=== PATIENT | male | born 1950 | race Caucasian/White ===

== ENCOUNTER 2017-09-26 12:57 | Inpatient (IN) | payer MEDICARE, OTHER ==
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
[2017-09-26] MEDS ORDERED: ACETAMINOPHEN INJECTION 100 ML IVPB ONE (13:35)
[2017-09-26 13:59] LABS: BASO % 0.1 % (0-2.0); EOS % 0.3 % (0-4.5); HEMATOCRIT 39.6 % (35.4-49); HEMOGLOBIN 13.8 GM/dL (11.7-16.9); LYMPH % 5.4 % (8-40); MCH 34.8 pg (25.7-33.7); MCHC 34.8 g/dl (32.0-35.9); MEAN CELL VOLUME 99.9 fl (80-96); MEAN PLT VOLUME 8.3 fl (7.5-11.1); MONO % 0.7 % (3.8-10.2); NEUT % 93.5 % (42.8-82.8); PLATELET COUNT 167 K/MM3 (134-434); RBC 3.96 M/mm3 (4.00-5.60); RDW 13.1 % (11.9-15.9)
[2017-09-26 14:01] LABS: VENOUS PH 7.47 (7.32-7.42)
[2017-09-26 14:02] LABS: VENOUS PC02 34.7 mmHg (38-52); VENOUS PO2 28.2 mmHg (28-48)
[2017-09-26] MEDS: ACETAMINOPHEN 1000 MG/100 ML VIAL (NON FORMULARY) IVPB ONE ×2 (14:08→15:52)
--- NOTE | 2017-09-26 14:17 | PDOC ---
Attending Attestation - Resident Resident Name: Alanis East - ED Attending Attestation I have performed the following: I have examined & evaluated the patient, The case was reviewed & discussed with the resident, I agree w/resident's findings & plan, Exceptions are as noted - HPI HPI: 09/26/17 14:14 The patient is a 66 year old male with past medical history of alcohol abuse ( last binge was 3 days ago) who presents to the ED with 2 days of difficulty urinating and fevers. He states that he strains to urinate and only a few drops come out. He reports associated fevers, chills, hematuria, and dysuria. He denies any nausea, vomiting, diarrhea, cough, SOB, CP, or other urinary complaints. Denies cough, denies headache, denies neck pain, denies back pain. - Physicial Exam PE: 09/26/17 14:15 "GENERAL: Awake, alert, and fully oriented, in no acute distress. HEAD: No signs of trauma EYES: PERRLA, EOMI, sclera anicteric, conjunctiva clear ENT: Auricles normal inspection, hearing grossly normal, nares patent, oropharynx clear without exudates. Moist mucosa NECK: Nontender, no stepoffs, Normal ROM, supple, no lymphadenopathy, JVD, or masses LUNGS: Breath sounds equal, clear to auscultation bilaterally. No wheezes, and no crackles HEART: Regular rate and rhythm, normal S1 and S2, no murmurs, rubs or gallops ABDOMEN: + suprapubic TTP, normoactive bowel sounds. No guarding, no rebound. No masses EXTREMITIES: Normal range of motion, no edema. No clubbing or cyanosis. No cords, erythema, or tenderness NEUROLOGICAL: Cranial nerves II through XII intact. 5/5 strength and sensation in all extremities, Normal speech, normal gait, normal cerebellar function SKIN: Warm, Dry, normal turgor, no rashes or lesions noted. " - Critical Care Time Total Critical Care Time: 60 Critical Care Statement: The care of this patient involved high complexity decision making to prevent further life threatening deterioration of the patient 's condition and/or to evaluate & treat vital organ system(s) failure or risk of failure. - Medical Decision Making 09/26/17 14:15 66 M with fevers, difficulty urinating, and dysuria. Likely UTI 2/2 obstruction. Pt with fever 102 and tachycardia, concerning for possible urosepsis. Vitals also notable for hypoxia 93%. Will need to r/o PNA. - Labs, cultures - CXR, UA - IVF, tylenol, abx Damico replaced with return of cloudy urine. Pt covered with IV abx for sepsis Admit to hospitalist.
[2017-09-26 14:22] LABS: INR 1.03 (0.82-1.09); PROTHROMBIN TIME (PATIENT) 11.6 SEC (9.98-11.88)
[2017-09-26 14:25] LABS: ACTIVATED PTT 27.2 SECONDS (26.9-34.4); ALBUMIN 2.9 g/dl (3.4-5.0); ANION GAP 11 (8-16); BILIRUBIN,TOTAL 2.1 mg/dL (0.2-1.0); BLOOD UREA NITROGEN 9 mg/dL (7-18); CALCIUM 7.8 mg/dL (8.5-10.1); CHLORIDE 96 mmol/L (98-107); CO2 24 mmol/L (21-32); CREATININE 1.1 mg/dL (0.7-1.3); GLUCOSE,RANDOM 182 mg/dL (74-106); POTASSIUM 3.4 mmol/L (3.5-5.1); SGOT/AST 48 U/L (15-37); SGPT/ALT 61 U/L (12-78); SODIUM 131 mmol/L (136-145); TOT PROT 6.7 g/dl (6.4-8.2)
[2017-09-26 14:26] LABS: ALK PHOS 144 U/L (45-117)
[2017-09-26] MEDS ORDERED: LIDOCAINE HCL 2% JELLY (5 ML/TUBE) TP ONE (14:32)
[2017-09-26] MEDS ORDERED: SODIUM CHLORIDE 1,000 ML IV STA ×2 (14:35→19:58)
[2017-09-26] MEDS ORDERED: LIDOCAINE HCL 2% JELLY (5 ML/TUBE) ONE (14:45)
[2017-09-26 14:46] LABS: URINE APPEARANCE CLOUDY; URINE BILIRUBIN NEGATIVE (<2.0 mg/dL); URINE BLOOD 2+ (NEGATIVE); URINE GLUCOSE (UA) NEGATIVE (NEGATIVE); URINE KETONE TRACE (NEGATIVE); URINE NITRITE NEGATIVE (NEGATIVE)
[2017-09-26 14:56] LABS: URINE COLOR DK YELLOW; URINE LEUK ESTERASE 3+ (NEGATIVE); URINE PROTEIN 2+ (NEGATIVE)
[2017-09-26 14:58] LABS: EPI CELLS RARE /HPF (FEW); URINE BACTERIA RARE /hpf (NONE SEEN); URINE MUCUS RARE
[2017-09-26] MEDS ORDERED: SODIUM CHLORIDE 0.9% 1000 ML INFUS.BAG IV STA (15:52)
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
[2017-09-26] MEDS ORDERED: VANCOMYCIN 1 GRAM (PRE-DOCKED) 1,000 MG/250 ML BAG IVPB ONE (16:23)
[2017-09-26] MEDS ORDERED: VANCOMYCIN 1,000 MG in DEXTROSE 5%-WATER - 250 ML IVPB ONE (16:30)
--- NOTE | 2017-09-26 16:41 | EKG ---
Test Reason : Blood Pressure : / mmHG Vent. Rate : 137 BPM Atrial Rate : 137 BPM P-R Int : 000 ms QRS Dur : 090 ms QT Int : 360 ms P-R-T Axes : 004 -22 041 degrees QTc Int : 543 ms SINUS TACHYCARDIA NONSPECIFIC T WAVE ABNORMALITY ABNORMAL ECG NO PREVIOUS ECGS AVAILABLE Confirmed by MD Jayashree, Alexys ([id number]) on 09/26/2017 4:41:01 PM Referred By: Confirmed By:Alexys Blanc MD
[2017-09-26] MEDS ORDERED: VANCOMYCIN 1,000 MG in DEXTROSE 5%-WATER - 250 ML IVPB SCH (17:00)
[2017-09-26 18:06] VITALS: BMI 22.6
[2017-09-26] MEDS ORDERED: DEXTROSE 5%-WATER - 50 ML IVPB ONE (20:56)
[2017-09-26] MEDS ORDERED: PIPERACILLIN/TAZOBACTAM 3.375 GM VIAL IVPB ONE (20:56)
[2017-09-26] MEDS: ACETAMINOPHEN 325 MG TABLET (FP) PO PRN (21:37)
[2017-09-26] MEDS: PIPERACILLIN/TAZOB 3.375 GM 3.375 GM in DEXTROSE 5%-WATER - 50 ML IVPB SCH (21:38)
[2017-09-26] MEDS: SODIUM CHLORIDE 1,000 ML IV SCH (22:29)
[2017-09-26] MEDS: HEPARIN NA (PORCINE) 5,000 UNITS/ML 1ML VIAL SQ SCH (22:29)
[2017-09-27] MEDS ORDERED: DEXTROSE 5%-WATER - 50 ML IVPB ONE ×2 (00:04→08:19)
[2017-09-27] MEDS ORDERED: PIPERACILLIN/TAZOBACTAM 3.375 GM VIAL IVPB ONE ×2 (00:04→08:19)
[2017-09-27] MEDS: PIPERACILLIN/TAZOB 3.375 GM 3.375 GM in DEXTROSE 5%-WATER - 50 ML IVPB SCH (01:28)
[2017-09-27] MEDS: POTASSIUM CHLORIDE TABS 20 MEQ TABLET.ER (FP) PO SCH ×2 (01:38→06:10)
[2017-09-27] MEDS: ACETAMINOPHEN 325 MG TABLET (FP) PO PRN (03:10)
[2017-09-27] MEDS ORDERED: VANCOMYCIN 1,000 MG in DEXTROSE 5%-WATER - 250 ML IVPB SCH (05:00)
[2017-09-27] MEDS: HEPARIN NA (PORCINE) 5,000 UNITS/ML 1ML VIAL SQ SCH ×3 (05:27→21:22)
[2017-09-27] MEDS ORDERED: IBUPROFEN 400 MG TABLET (FP) PO ONE (05:36)
[2017-09-27 07:14] LABS: BASO % 0.4 % (0-2.0); HEMATOCRIT 37.3 % (35.4-49); HEMOGLOBIN 12.7 GM/dL (11.7-16.9); LYMPH % 5.2 % (8-40); MCH 34.7 pg (25.7-33.7); MCHC 34.2 g/dl (32.0-35.9); MEAN CELL VOLUME 101.5 fl (80-96); MEAN PLT VOLUME 9.3 fl (7.5-11.1); MONO % 2.9 % (3.8-10.2); NEUT % 91.5 % (42.8-82.8); PLATELET COUNT 160 K/MM3 (134-434); RBC 3.67 M/mm3 (4.00-5.60); RDW 13.1 % (11.9-15.9)
[2017-09-27 07:50] LABS: ALBUMIN 2.2 g/dl (3.4-5.0); ANION GAP 8 (8-16); BILIRUBIN,DIRECT 0.6 mg/dL (0.0-0.2); BILIRUBIN,TOTAL 0.7 mg/dL (0.2-1.0); BLOOD UREA NITROGEN 6 mg/dL (7-18); CHLORIDE 108 mmol/L (98-107); CO2 24 mmol/L (21-32); CREATININE 0.9 mg/dL (0.7-1.3); GLUCOSE,RANDOM 136 mg/dL (74-106); MAGNESIUM 2.1 mg/dL (1.8-2.4); POTASSIUM 3.6 mmol/L (3.5-5.1); SODIUM 140 mmol/L (136-145); TOT PROT 5.3 g/dl (6.4-8.2)
--- NOTE | 2017-09-27 08:15 | PN ---
Progress Note (short form) - Note Progress Note: ID This is a 66 year old [place] immigrant living in [place] with his family since 1994 admitted with dysuria hematuria fevers and chills for 3 days. Denies prior medical history and says he has no doctor as he has not had any problems in past. He drinls a gret deal of alcohol but denies drug use. He has no recent travel and is not diabetic. Febrile here Damico inserted as he could not urinate. Renal sonogram no obstruction NKA No medications nonsmoker Selected Entries 09/27/17 09/27/17 03:12 08:05 Temperature 101.7 F H 99.8 F H Pulse Rate 99 H Respiratory 16 Rate Blood Pressure 96/52 Lung Clear Cor S1 S2 RR Abd soft nontender Ext No edema Microbiology Laboratory Tests 09/26/17 09/26/17 09/26/17 13:50 13:50 13:50 WBC 5.0 Hgb 13.8 MCV 99.9 H Plt Count 167 INR 1.03 BUN 9 Creatinine 1.1 Random Glucose 182 H Lactic Acid AST 48 H ALT 61 Alkaline Phosphatase 144 H C-Reactive Protein Ur Leukocyte Esterase Urine RBC (Auto) 09/26/17 09/26/17 09/26/17 13:56 14:35 17:38 WBC Hgb MCV Plt Count INR BUN Creatinine Random Glucose Lactic Acid 2.3 H* 1.1 AST ALT Alkaline Phosphatase C-Reactive Protein Ur Leukocyte Esterase 3+ H Urine RBC (Auto) 20 09/26/17 17:38 WBC Hgb MCV Plt Count INR BUN Creatinine Random Glucose Lactic Acid AST ALT Alkaline Phosphatase C-Reactive Protein 11.5 H Ur Leukocyte Esterase Urine RBC (Auto) Assessment Acute prostatitis Chronic alcoholism Sepsis Plan Cultures Zosyn Liver sonogram Hepatitis serology HIV testing B12 Folate Observe for withdrawal as per Peg Yusuf Meier MD Problem List - Problems (1) Acute prostatitis Code(s): N41.0 - ACUTE PROSTATITIS (2) Alcoholism Code(s): F10.20 - ALCOHOL DEPENDENCE, UNCOMPLICATED
[2017-09-27 08:26] LABS: CALCIUM 6.7 mg/dL (8.5-10.1)
[2017-09-27] MEDS ORDERED: PIPERACILLIN/TAZOBACTAM 4.5 GM VIAL IVPB ONE ×2 (09:10→17:05)
[2017-09-27] MEDS ORDERED: DEXTROSE 5%-WATER 100 ML IVPB ONE ×2 (09:10→17:06)
[2017-09-27] MEDS: TAMSULOSIN HCL 0.4 MG CAP.ER.24H (FP) PO SCH (10:42)
[2017-09-27] MEDS: PIPERACILLIN/TAZOB 4.5 GM 4.5 GM in DEXTROSE 5%-WATER 100 ML IVPB SCH ×2 (10:42→17:12)
[2017-09-27] MEDS: SODIUM CHLORIDE 1,000 ML IV SCH ×2 (10:43→12:30)
[2017-09-27] MEDS ORDERED: NAPH,MB-DB/K PH,MBDB POWDER PACKET PO ONE (11:15)
[2017-09-27] MEDS: CALCIUM 500MG/VIT-D 200 UNITS COMBO TABLET (FP) PO SCH (11:55)
--- NOTE | 2017-09-27 12:16 | PN ---
Physical Exam: SUBJECTIVE: Patient seen and examined. He feels better than yesterday, t max 102.4. Daughters at bedside. OBJECTIVE: Vital Signs Period Temp Pulse Resp BP Sys/Gallardo Pulse Ox Last 24 Hr 98.9 F-102.6 F 97-138 16-18 96-178/52-68 93-100 PE Neuro: alert, awake, cn 2-12intact Pulm: CTAB CV: s1 s2 rrr no mrg Abd: s nt nd + bs : mabry cloudy yellow urine - clearing ExT: no le edema, warm CBCD WBC 9.0 K/mm3 (4.0-10.0) D 09/27/17 06:16 RBC 3.67 M/mm3 (4.00-5.60) L 09/27/17 06:16 Hgb 12.7 GM/dL (11.7-16.9) 09/27/17 06:16 Hct 37.3 % (35.4-49) 09/27/17 06:16 MCV 101.5 fl (80-96) H 09/27/17 06:16 MCHC 34.2 g/dl (32.0-35.9) 09/27/17 06:16 RDW 13.1 % (11.9-15.9) 09/27/17 06:16 Plt Count 160 K/MM3 (134-434) 09/27/17 06:16 MPV 9.3 fl (7.5-11.1) D 09/27/17 06:16 CMP Sodium 140 mmol/L (136-145) 09/27/17 06:16 Potassium 3.6 mmol/L (3.5-5.1) 09/27/17 06:16 Chloride 108 mmol/L (98-107) H D 09/27/17 06:16 Carbon Dioxide 24 mmol/L (21-32) 09/27/17 06:16 Anion Gap 8 (8-16) 09/27/17 06:16 BUN 6 mg/dL (7-18) L D 09/27/17 06:16 Creatinine 0.9 mg/dL (0.7-1.3) 09/27/17 06:16 Creat Clearance w eGFR > 60 (>60) 09/26/17 13:50 Random Glucose 136 mg/dL (74-106) H D 09/27/17 06:16 Calcium 6.7 mg/dL (8.5-10.1) L* 09/27/17 06:16 Total Bilirubin 0.7 mg/dL (0.2-1.0) D 09/27/17 06:16 AST 92 U/L (15-37) H D 09/27/17 06:16 ALT 69 U/L (12-78) 09/27/17 06:16 Alkaline Phosphatase 117 U/L (45-117) 09/27/17 06:16 Total Protein 5.3 g/dl (6.4-8.2) L D 09/27/17 06:16 Albumin 2.2 g/dl (3.4-5.0) L D 09/27/17 06:16 09/26/17 09/26/17 09/26/17 13:50 13:56 17:38 INR 1.03 Lactic Acid 2.3 H* 1.1 Total Bilirubin Direct Bilirubin C-Reactive Protein Prostate Specific Ag Vitamin B12 Serum Folate Hep C Ab Diagnostic HIV 1&2 Antibody Screen HIV P24 Antigen 09/26/17 09/27/17 09/27/17 17:38 06:16 11:20 INR Lactic Acid Total Bilirubin 0.7 D Direct Bilirubin 0.6 H C-Reactive Protein 11.5 H Prostate Specific Ag Vitamin B12 Pending Serum Folate Pending Hep C Ab Diagnostic HIV 1&2 Antibody Screen Pending HIV P24 Antigen Pending 09/27/17 09/27/17 11:20 11:20 INR Lactic Acid Total Bilirubin Direct Bilirubin C-Reactive Protein Prostate Specific Ag Pending Vitamin B12 Serum Folate Hep C Ab Diagnostic Pending HIV 1&2 Antibody Screen HIV P24 Antigen Active Medications Generic Name Dose Route Start Last Admin Trade Name Freq PRN Reason Stop Dose Admin Acetaminophen 650 mg 09/26/17 21:33 09/27/17 03:10 Tylenol - PO 650 mg Q6H PRN Administration FEVER Calcium Carbonate/Cholecalciferol 1 tab 09/27/17 11:00 09/27/17 11:55 Os-Spenser 500+D - PO 1 tab DAILY LISA Administration Heparin Sodium (Porcine) 5,000 unit 09/26/17 22:00 09/27/17 05:27 Heparin - SQ 5,000 unit TID LISA Administration Piperacillin Sod/Tazobactam 100 mls @ 200 mls/hr 09/27/17 10:00 09/27/17 10: 42 Sod 4.5 gm/ Dextrose IVPB 200 mls/hr Q8H-IV LISA Administration Protocol Sodium Chloride 1,000 mls @ 83 mls/hr 09/27/17 12:05 Normal Saline - IV ASDIR LISA Tamsulosin HCl 0.4 mg 09/27/17 08:30 09/27/17 10:42 Flomax - PO 0.4 mg DAILY@0830 LISA Administration Microbiology 09/26/17 13:56 Blood - Peripheral Venous Blood Culture - Preliminary Pending Organism 09/26/17 13:56 Blood - Peripheral Venous Blood Culture - Preliminary Pending Organism Assessment: 66 year old male with no reported significant PMH other than daily alcohol use, up to 4 beers, admitted with urinary retention and severe sepsis. Plan: 1. Severe sepsis secondary to UTI, bacteremia - Remains febrile - BC pending - Lactic acid wnl - Continue zosyn - Decrease fluids - ID seeing 2. Urinary retention/hematuria/enlarged prostate - Maintain mabry - PSA level pending - Flomax - Urology consulted 3. Hepatic lesion/ETOH abuse - CTAP noted - Will obtain Abd MRI w, w/o contrast evaluate lesion - Hep panel pending - No acute withdrawal signs, pt last drink Monday 4. Electrolyte disarray Hypocalcemia, corrected 8.1: start po spenser supplements, no EKG changes noted on tele Hypophosphatemia: 2 pkts k phos now Hyponatreima: resolved Hypokalemia: resolved 5. DVT ppx - Heparin sq Visit type - Emergency Visit Emergency Visit: Yes ED Registration Date: 09/26/17 Care time: The patient presented to the Emergency Department on the above date and was hospitalized for further evaluation of their emergent condition. - New Patient This patient is new to me today: Yes Date on this admission: 09/27/17 - Critical Care Critical Care patient: No
[2017-09-27] MEDS: MULTIVITAMINS (DAILY MVI) TABLET (FP) PO SCH (12:30)
[2017-09-27] MEDS: FOLIC ACID 1 MG TABLET (FP) PO SCH (12:30)
[2017-09-27] MEDS: THIAMINE HCL 100 MG TABLET (FP) PO SCH (12:30)
--- NOTE | 2017-09-27 13:45 | CON.GI ---
Consult Consult Specialty:: GI Reason for Consultation:: abnormal CAT scan and ultrasound findings - History of Present Illness History of Present Illness: chart reviewed. The events noted. The initial intake: 66 year-old male with no reported significant PMH other than daily alcohol use. Patient presented to the ED today with a complaint of difficulty urinating x 2 days. Patient drank heavily three days ago at a constitution party. Since then he has had urgency, hematuria, and decreased urine output. He reports subjective fever and chills. He denies history of enlarged prostate or prostatitis. Soft tissue nodule was found on non-contrast CT and ultrasound. blood work revealed low normal platelet count, microcytosis, normal PT/INR, mildly elevated AST and normal total bili. the patient reports no prior history of liver issues. No family history of autoimmune, genetic, viral hepatitis. Normal physical exam. Patient's daughter at bedside helped interpreting. - Alcohol/Substance Use Hx Alcohol Use: Yes (OCCASIONALLY) - Smoking History Smoking history: Never smoked Home Medications - Allergies Allergies/Adverse Reactions: Allergies Allergy/AdvReac Type Severity Reaction Status Date / Time No Known Allergies Allergy Verified 09/26/17 13:02 - Home Medications Home Medications: Ambulatory Orders NK [No Known Home Medication] 09/26/17 Physical Exam-GI Vital Signs: Vital Signs Temperature 99.8 F H 09/27/17 08:05 Pulse Rate 99 H 09/27/17 08:05 Respiratory Rate 16 09/27/17 08:05 Blood Pressure 96/52 09/27/17 08:05 O2 Sat by Pulse Oximetry (%) 99 09/27/17 08:00 Constitutional: Yes: Well Nourished, No Distress, Calm Eyes: Yes: Conjunctiva Clear. No: Sclera Icterus HENT: Yes: Atraumatic Neck: Yes: Supple Cardiovascular: Yes: Regular Rate and Rhythm Respiratory: Yes: Regular Gastrointestinal Inspection: No: Ascites, Distention ...Auscultate: Yes: Normoactive Bowel Sounds ...Palpate: Yes: Soft. No: Firm/Rigid, Guarding, Tenderness Neurological: Yes: Alert Labs: CBC, BMP 09/27/17 06:16 09/27/17 06:16 INR, PTT INR 1.03 (0.82-1.09) 09/26/17 13:50 Laboratory Last Values WBC 9.0 K/mm3 (4.0-10.0) D 09/27/17 06:16 RBC 3.67 M/mm3 (4.00-5.60) L 09/27/17 06:16 Hgb 12.7 GM/dL (11.7-16.9) 09/27/17 06:16 Hct 37.3 % (35.4-49) 09/27/17 06:16 MCV 101.5 fl (80-96) H 09/27/17 06:16 MCH 34.7 pg (25.7-33.7) H 09/27/17 06:16 MCHC 34.2 g/dl (32.0-35.9) 09/27/17 06:16 RDW 13.1 % (11.9-15.9) 09/27/17 06:16 Plt Count 160 K/MM3 (134-434) 09/27/17 06:16 MPV 9.3 fl (7.5-11.1) D 09/27/17 06:16 Neutrophils % 91.5 % (42.8-82.8) H 09/27/17 06:16 Lymphocytes % 5.2 % (8-40) L 09/27/17 06:16 Monocytes % 2.9 % (3.8-10.2) L D 09/27/17 06:16 Eosinophils % 0.0 % (0-4.5) D 09/27/17 06:16 Basophils % 0.4 % (0-2.0) D 09/27/17 06:16 PT with INR 11.60 SEC (9.98-11.88) 09/26/17 13:50 INR 1.03 (0.82-1.09) 09/26/17 13:50 PTT (Actin FS) 27.2 SECONDS (26.9-34.4) 09/26/17 13:50 VBG pH 7.47 (7.32-7.42) H 09/26/17 13:42 POC VBG pCO2 34.7 mmHg (38-52) L 09/26/17 13:42 POC VBG pO2 28.2 mmHg (28-48) 09/26/17 13:42 Mixed VBG HCO3 25.2 meq/L (19-25) H 09/26/17 13:42 Sodium 140 mmol/L (136-145) 09/27/17 06:16 Potassium 3.6 mmol/L (3.5-5.1) 09/27/17 06:16 Chloride 108 mmol/L (98-107) H D 09/27/17 06:16 Carbon Dioxide 24 mmol/L (21-32) 09/27/17 06:16 Anion Gap 8 (8-16) 09/27/17 06:16 BUN 6 mg/dL (7-18) L D 09/27/17 06:16 Creatinine 0.9 mg/dL (0.7-1.3) 09/27/17 06:16 Creat Clearance w eGFR > 60 (>60) 09/26/17 13:50 Random Glucose 136 mg/dL (74-106) H D 09/27/17 06:16 Lactic Acid 1.1 mmol/L (0.0-2.0) 09/26/17 17:38 Calcium 6.7 mg/dL (8.5-10.1) L* 09/27/17 06:16 Phosphorus 2.0 mg/dL (2.5-4.9) L 09/27/17 06:16 Magnesium 2.1 mg/dL (1.8-2.4) 09/27/17 06:16 Total Bilirubin 0.7 mg/dL (0.2-1.0) D 09/27/17 06:16 Direct Bilirubin 0.6 mg/dL (0.0-0.2) H 09/27/17 06:16 AST 92 U/L (15-37) H D 09/27/17 06:16 ALT 69 U/L (12-78) 09/27/17 06:16 Alkaline Phosphatase 117 U/L (45-117) 09/27/17 06:16 Troponin I < 0.02 ng/ml (0.00-0.05) 09/26/17 13:50 C-Reactive Protein 11.5 MG/DL (0.00-0.3) H 09/26/17 17:38 Total Protein 5.3 g/dl (6.4-8.2) L D 09/27/17 06:16 Albumin 2.2 g/dl (3.4-5.0) L D 09/27/17 06:16 Vitamin B12 439 pg/ml (180-914) 09/27/17 06:16 Serum Folate 7 ng/ml (3.1-17.5) 09/27/17 06:16 Urine Color Dk yellow 09/26/17 14:35 Urine Appearance Cloudy 09/26/17 14:35 Urine pH 5.0 (5.0-8.0) 09/26/17 14:35 Ur Specific [place] 1.023 (1.001-1.035) 09/26/17 14:35 Urine Protein 2+ (NEGATIVE) H 09/26/17 14:35 Urine Glucose (UA) Negative (NEGATIVE) 09/26/17 14:35 Urine Ketones Trace (NEGATIVE) H 09/26/17 14:35 Urine Blood 2+ (NEGATIVE) H 09/26/17 14:35 Urine Nitrite Negative (NEGATIVE) 09/26/17 14:35 Urine Bilirubin Negative (<2.0 mg/dL) 09/26/17 14:35 Urine Urobilinogen 2.0 mg/dL (0.2-1.0) 09/26/17 14:35 Ur Leukocyte Esterase 3+ (NEGATIVE) H 09/26/17 14:35 Urine WBC (Auto) 365 /hpf (3-5) 09/26/17 14:35 Urine RBC (Auto) 20 /hpf (0-3) 09/26/17 14:35 Ur Epithelial Cells Rare /HPF (FEW) 09/26/17 14:35 Urine Bacteria Rare /hpf (NONE SEEN) 09/26/17 14:35 Urine Mucus Rare 09/26/17 14:35 HIV 1&2 Antibody Screen Negative 09/27/17 11:20 HIV P24 Antigen Negative 09/27/17 11:20 Blood Type O POSITIVE 09/26/17 17:38 Antibody Screen Negative 09/26/17 17:38 Imaging - Results Cat Scan: Report Reviewed Ultrasound: Report Reviewed Problem List - Problems (1) Transaminitis Code(s): R74.0 - NONSPEC ELEV OF LEVELS OF TRANSAMNS & LACTIC ACID DEHYDRGNSE (2) Abnormal findings on diagnostic imaging of liver Code(s): R93.2 - ABNORMAL FINDINGS ON DX IMAGING OF LIVER AND BILIARY TRACT (3) Alcoholism Code(s): F10.20 - ALCOHOL DEPENDENCE, UNCOMPLICATED Assessment/Plan a 66-year-old gentleman with history of excessive alcohol abuse with abnormal CAT scan and ultrasound of the liver suggesting soft tissue nodule. Recommend obtaining MRI of the liver with contrast, Alpha-fetoprotein, CA-19-9, CEA. Determine hepatitis a and B status. Vaccinate if negative. Tests for hepatitis C. Surveillance EGD and screening colonoscopy can be done on an outpatient basis.
[2017-09-28] MEDS ORDERED: DEXTROSE 5%-WATER 100 ML IVPB ONE ×3 (00:59→17:09)
[2017-09-28] MEDS ORDERED: PIPERACILLIN/TAZOBACTAM 4.5 GM VIAL IVPB ONE ×3 (00:59→17:09)
[2017-09-28] MEDS: PIPERACILLIN/TAZOB 4.5 GM 4.5 GM in DEXTROSE 5%-WATER 100 ML IVPB SCH ×3 (01:07→17:10)
[2017-09-28] MEDS: ACETAMINOPHEN 325 MG TABLET (FP) PO PRN (06:10)
[2017-09-28] MEDS: HEPARIN NA (PORCINE) 5,000 UNITS/ML 1ML VIAL SQ SCH ×3 (06:11→21:36)
[2017-09-28 07:55] LABS: BASO % 0.6 % (0-2.0); EOS % 0.4 % (0-4.5); HEMATOCRIT 32.6 % (35.4-49); HEMOGLOBIN 11.3 GM/dL (11.7-16.9); LYMPH % 19.6 % (8-40); MCH 35.1 pg (25.7-33.7); MCHC 34.6 g/dl (32.0-35.9); MEAN CELL VOLUME 101.3 fl (80-96); MEAN PLT VOLUME 9.6 fl (7.5-11.1); MONO % 10.6 % (3.8-10.2); NEUT % 68.8 % (42.8-82.8); PLATELET COUNT 142 K/MM3 (134-434); RBC 3.22 M/mm3 (4.00-5.60); RDW 13.1 % (11.9-15.9); WHITE BLOOD COUNT 6.3 K/mm3 (4.0-10.0)
[2017-09-28 08:09] LABS: ANION GAP 7 (8-16); BLOOD UREA NITROGEN 8 mg/dL (7-18); CHLORIDE 109 mmol/L (98-107); CO2 22 mmol/L (21-32); CREATININE 0.8 mg/dL (0.7-1.3); GLUCOSE,RANDOM 134 mg/dL (74-106); PHOSPHOROUS 1.3 mg/dL (2.5-4.9); POTASSIUM 3.5 mmol/L (3.5-5.1); SGOT/AST 87 U/L (15-37); SGPT/ALT 71 U/L (12-78); SODIUM 138 mmol/L (136-145)
[2017-09-28 08:19] LABS: ALK PHOS 103 U/L (45-117); BILIRUBIN,TOTAL 0.5 mg/dL (0.2-1.0)
[2017-09-28] MEDS: TAMSULOSIN HCL 0.4 MG CAP.ER.24H (FP) PO SCH (08:38)
[2017-09-28 08:45] LABS: CALCIUM 6.8 mg/dL (8.5-10.1)
[2017-09-28] MEDS: MULTIVITAMINS (DAILY MVI) TABLET (FP) PO SCH (09:59)
[2017-09-28] MEDS: THIAMINE HCL 100 MG TABLET (FP) PO SCH (09:59)
[2017-09-28] MEDS: FOLIC ACID 1 MG TABLET (FP) PO SCH (09:59)
[2017-09-28] MEDS: CALCIUM 500MG/VIT-D 200 UNITS COMBO TABLET (FP) PO SCH (09:59)
[2017-09-28] MEDS ORDERED: POTASSIUM PHOSPHATE 30 MM in SODIUM CHLORIDE 500 ML IVPB ONE (10:00)
--- NOTE | 2017-09-28 11:19 | PN ---
Progress Note, Physician Chief Complaint: ID Subjective improvement zosyn - Current Medication List Current Medications: Active Medications Acetaminophen (Tylenol -) 650 mg PO Q6H PRN PRN Reason: FEVER Last Admin: 09/28/17 06:10 Dose: 650 mg Calcium Carbonate/Cholecalciferol (Os-Spenser 500+D -) 1 tab PO DAILY [facility] Last Admin: 09/28/17 09:59 Dose: 1 tab Folic Acid (Folic Acid -) 1 mg PO DAILY [facility] Last Admin: 09/28/17 09:59 Dose: 1 mg Heparin Sodium (Porcine) (Heparin -) 5,000 unit SQ TID [facility] Last Admin: 09/28/17 06:11 Dose: 5,000 unit Piperacillin Sod/Tazobactam (Sod 4.5 gm/ Dextrose) 100 mls @ 200 mls/hr IVPB Q8H-IV LISA PRN Reason: Protocol Last Admin: 09/28/17 10:14 Dose: 200 mls/hr Sodium Chloride (Normal Saline -) 1,000 mls @ 83 mls/hr IV ASDIR [facility] Last Admin: 09/27/17 12:30 Dose: 83 mls/hr Potassium Phosphate 30 mm/ (Sodium Chloride) 510 mls @ 85 mls/hr IVPB ONCE ONE Stop: 09/28/17 15:59 Last Admin: 09/28/17 10:14 Dose: 85 mls/hr Multivitamins/Minerals/Vitamin C (Tab-A-Vit -) 1 tab PO DAILY [facility] Last Admin: 09/28/17 09:59 Dose: 1 tab Tamsulosin HCl (Flomax -) 0.4 mg PO DAILY@0830 [facility] Last Admin: 09/28/17 08:38 Dose: 0.4 mg Thiamine HCl (Vitamin B1 -) 100 mg PO DAILY [facility] Last Admin: 09/28/17 09:59 Dose: 100 mg - Objective Vital Signs: Vital Signs Temperature 99.5 F 09/28/17 08:00 Pulse Rate 88 09/28/17 10:00 Respiratory Rate 18 09/28/17 10:00 Blood Pressure 131/73 09/28/17 10:00 O2 Sat by Pulse Oximetry (%) 96 09/28/17 09:00 Constitutional: Yes: No Distress HENT: Yes: WNL, Atraumatic Neck: Yes: WNL, Supple Cardiovascular: Yes: Regular Rate and Rhythm, S1, S2 Respiratory: Yes: WNL, Regular, CTA Bilaterally Gastrointestinal: Yes: WNL, Normal Bowel Sounds, Soft. No: Tenderness, Tenderness, Epigastrium Edema: No Labs: CBC, BMP 09/28/17 06:40 09/28/17 06:40 INR, PTT INR 1.03 (0.82-1.09) 09/26/17 13:50 Problem List - Problems (1) Acute prostatitis Code(s): N41.0 - ACUTE PROSTATITIS (2) Alcoholism Code(s): F10.20 - ALCOHOL DEPENDENCE, UNCOMPLICATED Assessment/Plan Laboratory Tests 09/26/17 09/27/17 09/27/17 14:35 11:20 17:15 WBC Hgb Hct Plt Count ALT Alkaline Phosphatase Total Protein Albumin Ur Leukocyte Esterase 3+ H Urine RBC (Auto) 20 RPR Titer Hepatitis A IgM Ab Pending Hep Bs Antigen Pending Hep B Core IgM Ab Pending Hep C Ab Diagnostic Pending HIV 1&2 Antibody Screen Negative HIV P24 Antigen Negative 09/28/17 09/28/17 09/28/17 06:40 06:40 06:40 WBC 6.3 Hgb 11.3 L D Hct 32.6 L Plt Count 142 ALT 71 Alkaline Phosphatase 103 Total Protein 5.0 L Albumin 2.0 L Ur Leukocyte Esterase Urine RBC (Auto) RPR Titer Nonreactive Hepatitis A IgM Ab Hep Bs Antigen Hep B Core IgM Ab Hep C Ab Diagnostic HIV 1&2 Antibody Screen HIV P24 Antigen Assessment Acute prostatitis with gram neg bacteremia/ UTI Plan Continue Zosyn Await final cultures Go workup for LFTs likely related to alcoholism Discussed with his daughter today
--- NOTE | 2017-09-28 13:14 | PN ---
Physical Exam: SUBJECTIVE: Patient seen and examined. He feels much better today. Denies fever , chills. Discussed with daughter at bedside. Febrile 100.4 OBJECTIVE: Vital Signs Period Temp Pulse Resp BP Sys/Gallardo Pulse Ox Last 24 Hr 98.6 F-100.4 F 88-103 18-20 99-131/56-73 96-99 PE Neuro: alert, awake, cn 2-12intact Pulm: CTAB CV: s1 s2 rrr no mrg Abd: s nt nd + bs : mabry - clear ExT: no le edema, warm Laboratory Results - last 24 hr 09/27/17 09/27/17 09/27/17 06:16 11:20 11:20 WBC RBC Hgb Hct MCV MCH MCHC RDW Plt Count MPV Neutrophils % Lymphocytes % Monocytes % Eosinophils % Basophils % Sodium Potassium Chloride Carbon Dioxide Anion Gap BUN Creatinine Creat Clearance w eGFR Random Glucose Calcium Phosphorus Total Bilirubin AST ALT Alkaline Phosphatase Total Protein Albumin Prostate Specific Ag 30.00 H Vitamin B12 439 Serum Folate 7 TSH RPR Titer Hep C Ab Diagnostic <0.1 09/28/17 09/28/17 09/28/17 06:40 06:40 06:40 WBC 6.3 RBC 3.22 L Hgb 11.3 L D Hct 32.6 L MCV 101.3 H MCH 35.1 H MCHC 34.6 RDW 13.1 Plt Count 142 MPV 9.6 Neutrophils % 68.8 D Lymphocytes % 19.6 D Monocytes % 10.6 H D Eosinophils % 0.4 D Basophils % 0.6 Sodium 138 Potassium 3.5 Chloride 109 H Carbon Dioxide 22 Anion Gap 7 L BUN 8 D Creatinine 0.8 Creat Clearance w eGFR > 60 Random Glucose 134 H Calcium 6.8 L* Phosphorus 1.3 L D Total Bilirubin 0.5 D AST 87 H ALT 71 Alkaline Phosphatase 103 Total Protein 5.0 L Albumin 2.0 L Prostate Specific Ag Vitamin B12 Serum Folate TSH 1.55 RPR Titer Nonreactive Hep C Ab Diagnostic Active Medications Generic Name Dose Route Start Last Admin Trade Name Freq PRN Reason Stop Dose Admin Acetaminophen 650 mg 09/26/17 21:33 09/28/17 06:10 Tylenol - PO 650 mg Q6H PRN Administration FEVER Calcium Carbonate/Cholecalciferol 1 tab 09/27/17 11:00 09/28/17 09:59 Os-Spenser 500+D - PO 1 tab DAILY LISA Administration Folic Acid 1 mg 09/27/17 10:00 09/28/17 09:59 Folic Acid - PO 1 mg DAILY LISA Administration Heparin Sodium (Porcine) 5,000 unit 09/26/17 22:00 09/28/17 06:11 Heparin - SQ 5,000 unit TID LISA Administration Piperacillin Sod/Tazobactam 100 mls @ 200 mls/hr 09/27/17 10:00 09/28/17 10: 14 Sod 4.5 gm/ Dextrose IVPB 200 mls/hr Q8H-IV LISA Administration Protocol Sodium Chloride 1,000 mls @ 83 mls/hr 09/27/17 12:05 09/27/17 12:30 Normal Saline - IV 83 mls/hr ASDIR LISA Administration Potassium Phosphate 30 mm/ 510 mls @ 85 mls/hr 09/28/17 10:00 09/28/17 10:14 Sodium Chloride IVPB 09/28/17 15:59 85 mls/hr ONCE ONE Administration Multivitamins/Minerals/Vitamin C 1 tab 09/27/17 10:00 09/28/17 09:59 Tab-A-Vit - PO 1 tab DAILY LISA Administration Tamsulosin HCl 0.4 mg 09/27/17 08:30 09/28/17 08:38 Flomax - PO 0.4 mg DAILY@0830 LISA Administration Thiamine HCl 100 mg 09/27/17 12:30 09/28/17 09:59 Vitamin B1 - PO 100 mg DAILY LISA Administration Microbiology 09/26/17 13:56 Blood Culture - Final Blood - Peripheral Venous Escherichia Coli 09/26/17 14:35 Urine Culture - Preliminary Urine - Urine Clean Catch Lactose Fermenting Neg Bacilli 09/26/17 13:56 Blood Culture - Preliminary Blood - Peripheral Venous Lactose Fermenting Neg Bacilli Assessment: 66 year old male with no reported significant PMH other than daily alcohol use, up to 4 beers, admitted with urinary retention and severe sepsis. Plan: 1. Severe sepsis bacteremia secondary to UTI - Final BC pending - Continue zosyn - ID seeing 2. Urinary retention/hematuria/enlarged prostate - Maintain mabry - PSA level elevated - Flomax - Urology consulted 3. Hepatic lesion/ETOH abuse - Will obtain Abd MRI w, w/o contrast evaluate lesion- pending - Hep serologies ordered 4. Electrolyte disarray Hypocalcemia, corrected 8.4: continue po spenser supplements Hypophosphatemia: give potassium phosphate 30mm today Hyponatreima: resolved Hypokalemia: resolved 5. DVT ppx - Heparin sq Visit type - Emergency Visit Emergency Visit: Yes ED Registration Date: 09/26/17 Care time: The patient presented to the Emergency Department on the above date and was hospitalized for further evaluation of their emergent condition. - New Patient This patient is new to me today: No - Critical Care Critical Care patient: No
[2017-09-28] MEDS: SODIUM CHLORIDE 1,000 ML IV SCH (13:40)
[2017-09-29] MEDS ORDERED: PIPERACILLIN/TAZOBACTAM 4.5 GM VIAL IVPB ONE ×3 (01:32→16:30)
[2017-09-29] MEDS ORDERED: DEXTROSE 5%-WATER 100 ML IVPB ONE ×3 (01:33→16:30)
[2017-09-29] MEDS: PIPERACILLIN/TAZOB 4.5 GM 4.5 GM in DEXTROSE 5%-WATER 100 ML IVPB SCH ×3 (01:44→19:06)
[2017-09-29] MEDS: ACETAMINOPHEN 325 MG TABLET (FP) PO PRN (01:45)
[2017-09-29] MEDS: HEPARIN NA (PORCINE) 5,000 UNITS/ML 1ML VIAL SQ SCH ×3 (05:53→21:36)
[2017-09-29 07:07] LABS: ALBUMIN 2.1 g/dl (3.4-5.0); ANION GAP 7 (8-16); BLOOD UREA NITROGEN 7 mg/dL (7-18); CALCIUM 7.2 mg/dL (8.5-10.1); CHLORIDE 109 mmol/L (98-107); CO2 25 mmol/L (21-32); GLUCOSE,RANDOM 129 mg/dL (74-106); POTASSIUM 3.4 mmol/L (3.5-5.1); SODIUM 141 mmol/L (136-145)
[2017-09-29 07:10] LABS: ALK PHOS 119 U/L (45-117); BILIRUBIN,TOTAL 0.3 mg/dL (0.2-1.0); CREATININE 0.7 mg/dL (0.7-1.3); SGOT/AST 82 U/L (15-37); SGPT/ALT 72 U/L (12-78); TOT PROT 5.4 g/dl (6.4-8.2)
[2017-09-29 09:08] LABS: PHOSPHOROUS 3.1 mg/dL (2.5-4.9)
[2017-09-29] MEDS: FOLIC ACID 1 MG TABLET (FP) PO SCH (09:10)
[2017-09-29] MEDS: TAMSULOSIN HCL 0.4 MG CAP.ER.24H (FP) PO SCH (09:10)
[2017-09-29] MEDS: CALCIUM 500MG/VIT-D 200 UNITS COMBO TABLET (FP) PO SCH (09:10)
[2017-09-29] MEDS: MULTIVITAMINS (DAILY MVI) TABLET (FP) PO SCH (09:10)
[2017-09-29] MEDS: THIAMINE HCL 100 MG TABLET (FP) PO SCH (09:12)
[2017-09-29] MEDS ORDERED: POTASSIUM CHLORIDE ORAL LIQUID 20 MEQ/15 ML PO ONE (10:30)
[2017-09-29] MEDS ORDERED: PT OWN MED DRAWER 7, Y5N ONE (11:05)
--- NOTE | 2017-09-29 11:50 | PN ---
Physical Exam: SUBJECTIVE: Patient seen and examined. No issues, pt feels well. daughters at bedside OBJECTIVE: Vital Signs Period Temp Pulse Resp BP Sys/Gallardo Pulse Ox Last 24 Hr 98.8 F-100.5 F 84-100 20-20 113-145/56-85 97 PE Neuro: alert, awake, cn 2-12intact Pulm: CTAB CV: s1 s2 rrr no mrg Abd: s nt nd + bs : mabry - clear ExT: no le edema, warm Laboratory Results - last 24 hr 09/27/17 09/28/17 09/29/17 11:20 06:40 06:25 Sodium 141 Potassium 3.4 L Chloride 109 H Carbon Dioxide 25 Anion Gap 7 L BUN 7 Creatinine 0.7 Creat Clearance w eGFR > 60 Random Glucose 129 H Calcium 7.2 L Phosphorus 3.1 D Total Bilirubin 0.3 D AST 82 H ALT 72 Alkaline Phosphatase 119 H Total Protein 5.4 L Albumin 2.1 L Hep B Core IgM Ab Negative Hep C Ab Diagnostic <0.1 Liver Fibrosis Interp Active Medications Generic Name Dose Route Start Last Admin Trade Name Freq PRN Reason Stop Dose Admin Acetaminophen 650 mg 09/26/17 21:33 09/29/17 01:45 Tylenol - PO 650 mg Q6H PRN Administration FEVER Calcium Carbonate/Cholecalciferol 1 tab 09/27/17 11:00 09/29/17 09:10 Os-Spenser 500+D - PO 1 tab DAILY LISA Administration Folic Acid 1 mg 09/27/17 10:00 09/29/17 09:10 Folic Acid - PO 1 mg DAILY LISA Administration Heparin Sodium (Porcine) 5,000 unit 09/26/17 22:00 09/29/17 05:53 Heparin - SQ 5,000 unit TID LISA Administration Piperacillin Sod/Tazobactam 100 mls @ 200 mls/hr 09/27/17 10:00 09/29/17 09: 12 Sod 4.5 gm/ Dextrose IVPB 200 mls/hr Q8H-IV LISA Administration Protocol Multivitamins/Minerals/Vitamin C 1 tab 09/27/17 10:00 09/29/17 09:10 Tab-A-Vit - PO 1 tab DAILY LISA Administration Tamsulosin HCl 0.4 mg 09/27/17 08:30 09/29/17 09:10 Flomax - PO 0.4 mg DAILY@0830 LISA Administration Thiamine HCl 100 mg 09/27/17 12:30 09/29/17 09:12 Vitamin B1 - PO 100 mg DAILY LISA Administration Microbiology 09/26/17 14:35 Urine - Urine Clean Catch Urine Culture - Final Escherichia Coli Esbl Olive Packer 09/26/17 13:56 Blood - Peripheral Venous Blood Culture - Final Escherichia Coli 09/26/17 13:56 Blood - Peripheral Venous Blood Culture - Preliminary Lactose Fermenting Neg Bacilli Assessment: 66 year old male with no reported significant PMH other than daily alcohol use, up to 4 beers, admitted with urinary retention and severe sepsis. Plan: 1. Severe sepsis bacteremia secondary to Ecoli UTI - Cx noted - Continue zosyn per ID 2. Urinary retention/hematuria/enlarged prostate - Maintain mabry - PSA level elevated - Flomax - Urology consulted 3. Hepatic lesion/ETOH abuse - Will obtain Abd MRI done, report pending - Hep serologies noted - GI seeing 4. Electrolyte disarray Hypocalcemia; continue po spenser supplements Hypophosphatemia: resolved Hyponatreima: resolved Hypokalemia: resolved 5. DVT ppx - Heparin sq Visit type - Emergency Visit Emergency Visit: Yes ED Registration Date: 09/26/17 Care time: The patient presented to the Emergency Department on the above date and was hospitalized for further evaluation of their emergent condition. - New Patient This patient is new to me today: No - Critical Care Critical Care patient: No
--- NOTE | 2017-09-29 13:27 | PN ---
Progress Note (short form) - Note Progress Note: feels better urine culture and blood culture do not match (sensitivity)- micro to repeat urine culture results- should be available tomorrow Vital Signs Period Temp Pulse Resp BP Sys/Gallardo Pulse Ox Last 24 Hr 98.8 F-100.5 F 84-100 20-20 113-145/56-85 97 cor-rrr lungs clear abd soft,nt ext no edema +mabry CBC, BMP 09/28/17 06:40 09/29/17 06:25 Microbiology 09/26/17 14:35 Urine - Urine Clean Catch Urine Culture - Final Escherichia Coli Esbl Resident Caregiver 09/26/17 13:56 Blood - Peripheral Venous Blood Culture - Final Escherichia Coli 09/26/17 13:56 Blood - Peripheral Venous Blood Culture - Preliminary Lactose Fermenting Neg Bacilli a.p ecolli bacteremia secondary to UTI f/w with micro in am f/u with urology continue zosyn for now day #3
[2017-09-30] MEDS ORDERED: PIPERACILLIN/TAZOBACTAM 4.5 GM VIAL IVPB ONE ×2 (00:46→10:03)
[2017-09-30] MEDS ORDERED: DEXTROSE 5%-WATER 100 ML IVPB ONE ×3 (00:47→12:10)
[2017-09-30] MEDS: PIPERACILLIN/TAZOB 4.5 GM 4.5 GM in DEXTROSE 5%-WATER 100 ML IVPB SCH ×2 (01:18→10:14)
[2017-09-30] MEDS: HEPARIN NA (PORCINE) 5,000 UNITS/ML 1ML VIAL SQ SCH ×3 (05:38→22:06)
[2017-09-30] MEDS ORDERED: PT OWN MED DRAWER 7, Y5N ONE (07:49)
[2017-09-30] MEDS: TAMSULOSIN HCL 0.4 MG CAP.ER.24H (FP) PO SCH (07:50)
--- NOTE | 2017-09-30 08:44 | PN ---
Physical Exam: SUBJECTIVE: Patient seen and examined. He feels well, offers no complaints. OBJECTIVE: Vital Signs Period Temp Pulse Resp BP Sys/Gallardo Pulse Ox Last 24 Hr 98.3 F-99.3 F 84-94 18-20 125-147/74-85 96-96 PE Neuro: alert, awake, cn 2-12intact Pulm: CTAB CV: s1 s2 rrr no mrg Abd: s nt nd + bs : mabry - clear ExT: no le edema, warm Laboratory Results - last 24 hr 09/27/17 09/29/17 17:15 06:25 Sodium 141 Potassium 3.4 L Chloride 109 H Carbon Dioxide 25 Anion Gap 7 L BUN 7 Creatinine 0.7 Creat Clearance w eGFR > 60 Random Glucose 129 H Calcium 7.2 L Phosphorus 3.1 D Total Bilirubin 0.3 D AST 82 H ALT 72 Alkaline Phosphatase 119 H Total Protein 5.4 L Albumin 2.1 L Hepatitis A IgM Ab Negative Hep Bs Antigen Negative Hep B Core IgM Ab Negative Active Medications Generic Name Dose Route Start Last Admin Trade Name Stanislavq PRN Reason Stop Dose Admin Acetaminophen 650 mg 09/26/17 21:33 09/29/17 01:45 Tylenol - PO 650 mg Q6H PRN Administration FEVER Calcium Carbonate/Cholecalciferol 1 tab 09/27/17 11:00 09/29/17 09:10 Os-Spenser 500+D - PO 1 tab DAILY LISA Administration Folic Acid 1 mg 09/27/17 10:00 09/29/17 09:10 Folic Acid - PO 1 mg DAILY LISA Administration Heparin Sodium (Porcine) 5,000 unit 09/26/17 22:00 09/30/17 05:38 Heparin - SQ 5,000 unit TID LISA Administration Piperacillin Sod/Tazobactam 100 mls @ 200 mls/hr 09/27/17 10:00 09/30/17 01: 18 Sod 4.5 gm/ Dextrose IVPB 200 mls/hr Q8H-IV LISA Administration Protocol Multivitamins/Minerals/Vitamin C 1 tab 09/27/17 10:00 09/29/17 09:10 Tab-A-Vit - PO 1 tab DAILY LISA Administration Tamsulosin HCl 0.4 mg 09/27/17 08:30 09/30/17 07:50 Flomax - PO 0.4 mg DAILY@0830 LISA Administration Thiamine HCl 100 mg 09/27/17 12:30 09/29/17 09:12 Vitamin B1 - PO 100 mg DAILY LISA Administration Microbiology 09/26/17 14:35 Urine - Urine Clean Catch Urine Culture - Final Escherichia Coli 09/26/17 13:56 Blood - Peripheral Venous Blood Culture - Final Escherichia Coli 09/26/17 13:56 Blood - Peripheral Venous Blood Culture - Preliminary Lactose Fermenting Neg Bacilli Assessment: 66 year old male with no reported significant PMH other than daily alcohol use, up to 4 beers, admitted with urinary retention and severe sepsis. Plan: 1. Severe sepsis bacteremia secondary to Ecoli UTI - Continue zosyn per ID 2. Urinary retention/hematuria/enlarged prostate - Maintain mabry - PSA level elevated - Flomax - Urology consulted 3. Hepatic lesion/ETOH abuse - Abd MRI shows right hepatic lobe lesion ?early HCC or flash hemangioma - AFP level ordered - GI to evaluate MRI 4. Electrolyte disarray Hypocalcemia; Resolved, cont supplements Hypophosphatemia: resolved Hyponatreima: resolved Hypokalemia: resolved 5. DVT ppx - Heparin sq Visit type - Emergency Visit Emergency Visit: Yes ED Registration Date: 09/26/17 Care time: The patient presented to the Emergency Department on the above date and was hospitalized for further evaluation of their emergent condition. - New Patient This patient is new to me today: No - Critical Care Critical Care patient: No
[2017-09-30] MEDS: CALCIUM 500MG/VIT-D 200 UNITS COMBO TABLET (FP) PO SCH (09:41)
[2017-09-30] MEDS: FOLIC ACID 1 MG TABLET (FP) PO SCH (09:41)
[2017-09-30] MEDS: THIAMINE HCL 100 MG TABLET (FP) PO SCH (09:41)
[2017-09-30] MEDS: MULTIVITAMINS (DAILY MVI) TABLET (FP) PO SCH (09:41)
--- NOTE | 2017-09-30 10:58 | PN ---
Progress Note (short form) - Note Progress Note: feels better repeat urine cultue shows gimenez sensitive ecoli matching blood isolate no need for isolation Vital Signs Period Temp Pulse Resp BP Sys/Gallardo Pulse Ox Last 24 Hr 98.3 F-99.3 F 84-94 18-20 125-147/74-81 96-96 cor-rrr lungs clear abd soft,n ext no edema +mabry CBC, BMP 09/28/17 06:40 09/29/17 06:25 Microbiology 09/26/17 14:35 Urine - Urine Clean Catch Urine Culture - Final Escherichia Coli 09/26/17 13:56 Blood - Peripheral Venous Blood Culture - Final Escherichia Coli 09/26/17 13:56 Blood - Peripheral Venous Blood Culture - Preliminary Lactose Fermenting Neg Bacilli a.p ecolli bacteremia secondary to UTI day #4 antibiotics- de-escalate to ceftriaxone psa 30 awaiting urology evaluation
[2017-09-30] MEDS: CEFTRIAXONE 2 GM in DEXTROSE 5%-WATER 100 ML IVPB SCH (12:00)
[2017-10-01] MEDS: HEPARIN NA (PORCINE) 5,000 UNITS/ML 1ML VIAL SQ SCH ×3 (06:25→21:08)
[2017-10-01] MEDS ORDERED: DEXTROSE 5%-WATER 100 ML IVPB ONE (08:13)
[2017-10-01] MEDS: TAMSULOSIN HCL 0.4 MG CAP.ER.24H (FP) PO SCH (08:24)
[2017-10-01 08:39] LABS: ALBUMIN 2.7 g/dl (3.4-5.0); ALK PHOS 116 U/L (45-117); ANION GAP 12 (8-16); BILIRUBIN,TOTAL 0.3 mg/dL (0.2-1.0); BLOOD UREA NITROGEN 9 mg/dL (7-18); CALCIUM 8.2 mg/dL (8.5-10.1); CHLORIDE 106 mmol/L (98-107); CO2 24 mmol/L (21-32); CREATININE 0.7 mg/dL (0.7-1.3); GLUCOSE,RANDOM 126 mg/dL (74-106); POTASSIUM 3.9 mmol/L (3.5-5.1); SGOT/AST 62 U/L (15-37); SGPT/ALT 78 U/L (12-78); SODIUM 142 mmol/L (136-145); TOT PROT 6.6 g/dl (6.4-8.2)
[2017-10-01] MEDS: THIAMINE HCL 100 MG TABLET (FP) PO SCH (09:38)
[2017-10-01] MEDS: FOLIC ACID 1 MG TABLET (FP) PO SCH (09:38)
[2017-10-01] MEDS: CALCIUM 500MG/VIT-D 200 UNITS COMBO TABLET (FP) PO SCH (09:38)
[2017-10-01] MEDS: MULTIVITAMINS (DAILY MVI) TABLET (FP) PO SCH (09:38)
[2017-10-01] MEDS: CEFTRIAXONE 2 GM in DEXTROSE 5%-WATER 100 ML IVPB SCH (09:39)
--- NOTE | 2017-10-01 09:40 | PN ---
Physical Exam: SUBJECTIVE: Patient seen and examined. He feels well, no fever, abd pain, le swelling OBJECTIVE: Vital Signs Period Temp Pulse Resp BP Sys/Gallardo Pulse Ox Last 24 Hr 97.0 F-98.4 F 72-104 20-22 119-153/69-86 96-99 PE Neuro: alert, awake, cn 2-12intact Pulm: CTAB CV: s1 s2 rrr no mrg Abd: s nt nd + bs : mabry ExT: no le edema, warm Laboratory Results - last 24 hr 09/30/17 10/01/17 10:16 06:00 Sodium 142 Potassium 3.9 Chloride 106 Carbon Dioxide 24 Anion Gap 12 BUN 9 D Creatinine 0.7 Creat Clearance w eGFR > 60 Random Glucose 126 H Calcium 8.2 L Total Bilirubin 0.3 AST 62 H D ALT 78 Alkaline Phosphatase 116 Total Protein 6.6 D Albumin 2.7 L D Tumor Marker AFP 8.7 H Active Medications Generic Name Dose Route Start Last Admin Trade Name Freq PRN Reason Stop Dose Admin Acetaminophen 650 mg 09/26/17 21:33 09/29/17 01:45 Tylenol - PO 650 mg Q6H PRN Administration FEVER Folic Acid 1 mg 09/27/17 10:00 10/01/17 09:38 Folic Acid - PO 1 mg DAILY LISA Administration Heparin Sodium (Porcine) 5,000 unit 09/26/17 22:00 10/01/17 06:25 Heparin - SQ 5,000 unit TID LISA Administration Ceftriaxone Sodium 2 gm/ 100 mls @ 200 mls/hr 09/30/17 11:00 10/01/17 09:39 Dextrose IVPB 200 mls/hr DAILY LISA Administration Protocol Multivitamins/Minerals/Vitamin C 1 tab 09/27/17 10:00 10/01/17 09:38 Tab-A-Vit - PO 1 tab DAILY LISA Administration Tamsulosin HCl 0.4 mg 09/27/17 08:30 10/01/17 08:24 Flomax - PO 0.4 mg DAILY@0830 LISA Administration Thiamine HCl 100 mg 09/27/17 12:30 10/01/17 09:38 Vitamin B1 - PO 100 mg DAILY LISA Administration Assessment: 66 year old male with no reported significant PMH other than daily alcohol use, up to 4 beers, admitted with urinary retention and severe sepsis. Plan: 1. Severe sepsis bacteremia secondary to Ecoli UTI - Zosyn stopped 09/30 - Started ceftriaxone per sensitives 2. Urinary retention/hematuria/enlarged prostate - Maintain mabry - PSA level elevated - Flomax - Urology eval tomorrow 3. Hepatic lesion/ETOH abuse - Abd MRI shows right hepatic lobe lesion ?early HCC or flash hemangioma - AFP level elevated - GI to evaluate 4. Electrolyte disarray Hypocalcemia; Resolved, can stop supplements Hypophosphatemia: resolved Hyponatreima: resolved Hypokalemia: resolved 5. DVT ppx - Heparin sq Visit type - Emergency Visit Emergency Visit: Yes ED Registration Date: 09/26/17 Care time: The patient presented to the Emergency Department on the above date and was hospitalized for further evaluation of their emergent condition. - New Patient This patient is new to me today: No - Critical Care Critical Care patient: No
[2017-10-02] MEDS: HEPARIN NA (PORCINE) 5,000 UNITS/ML 1ML VIAL SQ SCH ×2 (06:00→13:13)
[2017-10-02] MEDS ORDERED: DEXTROSE 5%-WATER 100 ML IVPB ONE (08:19)
--- NOTE | 2017-10-02 08:19 | PN ---
Physical Exam: SUBJECTIVE: Patient seen and examined OBJECTIVE: Vital Signs Period Temp Pulse Resp BP Sys/Gallardo Pulse Ox Last 24 Hr 98.4 F-99.0 F 88-102 18-20 130-143/73-81 97-99 Laboratory Results - last 24 hr 10/01/17 06:00 Sodium 142 Potassium 3.9 Chloride 106 Carbon Dioxide 24 Anion Gap 12 BUN 9 D Creatinine 0.7 Creat Clearance w eGFR > 60 Random Glucose 126 H Calcium 8.2 L Total Bilirubin 0.3 AST 62 H D ALT 78 Alkaline Phosphatase 116 Total Protein 6.6 D Albumin 2.7 L D Active Medications Generic Name Dose Route Start Last Admin Trade Name Freq PRN Reason Stop Dose Admin Acetaminophen 650 mg 09/26/17 21:33 09/29/17 01:45 Tylenol - PO 650 mg Q6H PRN Administration FEVER Folic Acid 1 mg 09/27/17 10:00 10/01/17 09:38 Folic Acid - PO 1 mg DAILY LISA Administration Heparin Sodium (Porcine) 5,000 unit 09/26/17 22:00 10/02/17 06:00 Heparin - SQ 5,000 unit TID LISA Administration Ceftriaxone Sodium 2 gm/ 100 mls @ 200 mls/hr 09/30/17 11:00 10/01/17 09:39 Dextrose IVPB 200 mls/hr DAILY LISA Administration Protocol Multivitamins/Minerals/Vitamin C 1 tab 09/27/17 10:00 10/01/17 09:38 Tab-A-Vit - PO 1 tab DAILY LISA Administration Tamsulosin HCl 0.4 mg 09/27/17 08:30 10/01/17 08:24 Flomax - PO 0.4 mg DAILY@0830 LISA Administration Thiamine HCl 100 mg 09/27/17 12:30 10/01/17 09:38 Vitamin B1 - PO 100 mg DAILY LISA Administration
[2017-10-02] MEDS: CEFTRIAXONE 2 GM in DEXTROSE 5%-WATER 100 ML IVPB SCH (09:40)
[2017-10-02] MEDS: TAMSULOSIN HCL 0.4 MG CAP.ER.24H (FP) PO SCH (09:41)
[2017-10-02] MEDS: FOLIC ACID 1 MG TABLET (FP) PO SCH (09:41)
[2017-10-02] MEDS: MULTIVITAMINS (DAILY MVI) TABLET (FP) PO SCH (09:41)
[2017-10-02] MEDS: THIAMINE HCL 100 MG TABLET (FP) PO SCH (09:42)
[2017-10-02 09:51] VITALS: BP 129/78; PULSE 91; TEMP 97.8
--- NOTE | 2017-10-02 12:15 | PN ---
Progress Note, Physician History of Present Illness: Asymptomatic. No events. MRI results noted. Discussed with daughters at bedside. - Current Medication List Current Medications: Active Medications Acetaminophen (Tylenol -) 650 mg PO Q6H PRN PRN Reason: FEVER Last Admin: 09/29/17 01:45 Dose: 650 mg Folic Acid (Folic Acid -) 1 mg PO DAILY [facility] Last Admin: 10/02/17 09:41 Dose: 1 mg Heparin Sodium (Porcine) (Heparin -) 5,000 unit SQ TID [facility] Last Admin: 10/02/17 06:00 Dose: 5,000 unit Ceftriaxone Sodium 2 gm/ (Dextrose) 100 mls @ 200 mls/hr IVPB DAILY [facility] PRN Reason: Protocol Last Admin: 10/02/17 09:40 Dose: 200 mls/hr Multivitamins/Minerals/Vitamin C (Tab-A-Vit -) 1 tab PO DAILY [facility] Last Admin: 10/02/17 09:41 Dose: 1 tab Tamsulosin HCl (Flomax -) 0.4 mg PO DAILY@0830 [facility] Last Admin: 10/02/17 09:41 Dose: 0.4 mg Thiamine HCl (Vitamin B1 -) 100 mg PO DAILY [facility] Last Admin: 10/02/17 09:42 Dose: 100 mg - Objective Vital Signs: Vital Signs Temperature 97.8 F 10/02/17 09:53 Pulse Rate 91 H 10/02/17 09:53 Respiratory Rate 18 10/02/17 09:53 Blood Pressure 129/78 10/02/17 09:53 O2 Sat by Pulse Oximetry (%) 97 10/02/17 09:00 Constitutional: Yes: Well Nourished, No Distress, Calm Eyes: Yes: Conjunctiva Clear HENT: Yes: Atraumatic Neck: Yes: Supple Cardiovascular: Yes: Regular Rate and Rhythm Respiratory: Yes: Regular Gastrointestinal: Yes: Soft. No: Distention, Melena, Rectal Bleeding, Tenderness, Vomiting Neurological: Yes: Alert Labs: CBC, BMP 09/28/17 06:40 10/01/17 06:00 INR, PTT INR 1.03 (0.82-1.09) 09/26/17 13:50 Laboratory Last Values WBC 6.3 K/mm3 (4.0-10.0) 09/28/17 06:40 RBC 3.22 M/mm3 (4.00-5.60) L 09/28/17 06:40 Hgb 11.3 GM/dL (11.7-16.9) L D 09/28/17 06:40 Hct 32.6 % (35.4-49) L 09/28/17 06:40 MCV 101.3 fl (80-96) H 09/28/17 06:40 MCH 35.1 pg (25.7-33.7) H 09/28/17 06:40 MCHC 34.6 g/dl (32.0-35.9) 09/28/17 06:40 RDW 13.1 % (11.9-15.9) 09/28/17 06:40 Plt Count 142 K/MM3 (134-434) 09/28/17 06:40 MPV 9.6 fl (7.5-11.1) 09/28/17 06:40 Neutrophils % 68.8 % (42.8-82.8) D 09/28/17 06:40 Lymphocytes % 19.6 % (8-40) D 09/28/17 06:40 Monocytes % 10.6 % (3.8-10.2) H D 09/28/17 06:40 Eosinophils % 0.4 % (0-4.5) D 09/28/17 06:40 Basophils % 0.6 % (0-2.0) 09/28/17 06:40 PT with INR 11.60 SEC (9.98-11.88) 09/26/17 13:50 INR 1.03 (0.82-1.09) 09/26/17 13:50 PTT (Actin FS) 27.2 SECONDS (26.9-34.4) 09/26/17 13:50 VBG pH 7.47 (7.32-7.42) H 09/26/17 13:42 POC VBG pCO2 34.7 mmHg (38-52) L 09/26/17 13:42 POC VBG pO2 28.2 mmHg (28-48) 09/26/17 13:42 Mixed VBG HCO3 25.2 meq/L (19-25) H 09/26/17 13:42 Sodium 142 mmol/L (136-145) 10/01/17 06:00 Potassium 3.9 mmol/L (3.5-5.1) 10/01/17 06:00 Chloride 106 mmol/L (98-107) 10/01/17 06:00 Carbon Dioxide 24 mmol/L (21-32) 10/01/17 06:00 Anion Gap 12 (8-16) 10/01/17 06:00 BUN 9 mg/dL (7-18) D 10/01/17 06:00 Creatinine 0.7 mg/dL (0.7-1.3) 10/01/17 06:00 Creat Clearance w eGFR > 60 (>60) 10/01/17 06:00 Random Glucose 126 mg/dL (74-106) H 10/01/17 06:00 Lactic Acid 1.1 mmol/L (0.0-2.0) 09/26/17 17:38 Calcium 8.2 mg/dL (8.5-10.1) L 10/01/17 06:00 Phosphorus 3.1 mg/dL (2.5-4.9) D 09/29/17 06:25 Magnesium 2.1 mg/dL (1.8-2.4) 09/27/17 06:16 Total Bilirubin 0.3 mg/dL (0.2-1.0) 10/01/17 06:00 Direct Bilirubin 0.6 mg/dL (0.0-0.2) H 09/27/17 06:16 AST 62 U/L (15-37) H D 10/01/17 06:00 ALT 78 U/L (12-78) 10/01/17 06:00 Alkaline Phosphatase 116 U/L (45-117) 10/01/17 06:00 Troponin I < 0.02 ng/ml (0.00-0.05) 09/26/17 13:50 C-Reactive Protein 11.5 MG/DL (0.00-0.3) H 09/26/17 17:38 Total Protein 6.6 g/dl (6.4-8.2) D 10/01/17 06:00 Albumin 2.7 g/dl (3.4-5.0) L D 10/01/17 06:00 Tumor Marker AFP 8.7 ng/ml (0.0-8.3) H 09/30/17 10:16 Prostate Specific Ag 30.00 ng/ml (0.0-4.0) H 09/27/17 11:20 Vitamin B12 439 pg/ml (180-914) 09/27/17 06:16 Serum Folate 7 ng/ml (3.1-17.5) 09/27/17 06:16 TSH 1.55 uIU/ml (0.358-3.74) 09/28/17 06:40 Urine Color Dk yellow 09/26/17 14:35 Urine Appearance Cloudy 09/26/17 14:35 Urine pH 5.0 (5.0-8.0) 09/26/17 14:35 Ur Specific [place] 1.023 (1.001-1.035) 09/26/17 14:35 Urine Protein 2+ (NEGATIVE) H 09/26/17 14:35 Urine Glucose (UA) Negative (NEGATIVE) 09/26/17 14:35 Urine Ketones Trace (NEGATIVE) H 09/26/17 14:35 Urine Blood 2+ (NEGATIVE) H 09/26/17 14:35 Urine Nitrite Negative (NEGATIVE) 09/26/17 14:35 Urine Bilirubin Negative (<2.0 mg/dL) 09/26/17 14:35 Urine Urobilinogen 2.0 mg/dL (0.2-1.0) 09/26/17 14:35 Ur Leukocyte Esterase 3+ (NEGATIVE) H 09/26/17 14:35 Urine WBC (Auto) 365 /hpf (3-5) 09/26/17 14:35 Urine RBC (Auto) 20 /hpf (0-3) 09/26/17 14:35 Ur Epithelial Cells Rare /HPF (FEW) 09/26/17 14:35 Urine Bacteria Rare /hpf (NONE SEEN) 09/26/17 14:35 Urine Mucus Rare 09/26/17 14:35 RPR Titer Nonreactive (NONREACTIVE) 09/28/17 06:40 Hepatitis A IgM Ab Negative (Negative) 09/27/17 17:15 Hep Bs Antigen Negative (Negative) 09/27/17 17:15 Hep B Core IgM Ab Negative (Negative) 09/28/17 06:40 Hep C Ab Diagnostic <0.1 09/27/17 17:15 Liver Fibrosis Interp 09/27/17 11:20 HIV 1&2 Antibody Screen Negative 09/27/17 11:20 HIV P24 Antigen Negative 09/27/17 11:20 Blood Type O POSITIVE 09/26/17 17:38 Antibody Screen Negative 09/26/17 17:38 - ....Imaging MRI: Report Reviewed Problem List - Problems (1) Transaminitis Code(s): R74.0 - NONSPEC ELEV OF LEVELS OF TRANSAMNS & LACTIC ACID DEHYDRGNSE (2) Abnormal findings on diagnostic imaging of liver Code(s): R93.2 - ABNORMAL FINDINGS ON DX IMAGING OF LIVER AND BILIARY TRACT (3) Alcoholism Code(s): F10.20 - ALCOHOL DEPENDENCE, UNCOMPLICATED Assessment/Plan 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 Will discuss with IR re ? possible biopsy. Alternative is to repeat imaging in 2-3 months. Discussed these options with the family. In the setting of chronic alcohol abuse, AFP of 8 is not conclusive.
--- NOTE | 2017-10-02 13:11 | CON.GU ---
Consult Consult Specialty:: Referred by:: medicine Reason for Consultation:: urinary retention, BPH - History of Present Illness Chief Complaint: urinary retention, BPH History of Present Illness: 66 year old male admited with urinary retention secondary to BPH. He and family deny any prior similar history. PSA was measured at 30, however with acute retention this is likely artifically high. - History Source History Provided By: Patient, Medical Record - Past Medical History Renal/: Yes: BPH - Alcohol/Substance Use Hx Alcohol Use: Yes (OCCASIONALLY) - Smoking History Smoking history: Never smoked Home Medications - Allergies Allergies/Adverse Reactions: Allergies Allergy/AdvReac Type Severity Reaction Status Date / Time No Known Allergies Allergy Verified 09/26/17 13:02 - Home Medications Home Medications: Ambulatory Orders NK [No Known Home Medication] 09/26/17 Review of Systems - Review of Systems Genitourinary: denies: Flank Pain, Hematuria, Incontinence Physical Exam- Vital Signs: Vital Signs Temperature 97.8 F 10/02/17 09:53 Pulse Rate 91 H 10/02/17 09:53 Respiratory Rate 18 10/02/17 09:53 Blood Pressure 129/78 10/02/17 09:53 O2 Sat by Pulse Oximetry (%) 97 10/02/17 09:00 Renal/: Yes: Damico Present. No: Bladder Distention, CVA Tenderness - Left, CVA Tenderness - Right, Hematuria Labs: CBC, BMP 09/28/17 06:40 10/01/17 06:00 Problem List - Problems (1) Benign localized hyperplasia of prostate with urinary obstruction Assessment/Plan: trial of void. flomax. proscar. prostate is 80 grams. Code(s): N40.1 - BENIGN PROSTATIC HYPERPLASIA WITH LOWER URINARY TRACT SYMP; N13.8 - OTHER OBSTRUCTIVE AND REFLUX UROPATHY (2) Elevated prostate specific antigen greater than or equal to 20 ng/ml Assessment/Plan: needs repeat PSA six weeks after acute episode Code(s): R97.20 - ELEVATED PROSTATE SPECIFIC ANTIGEN [PSA]
--- NOTE | 2017-10-02 14:12 | DS ---
Physical Exam: SUBJECTIVE: Patient seen and examined OBJECTIVE: Vital Signs Period Temp Pulse Resp BP Sys/Gallardo Pulse Ox Last 24 Hr 97.8 F-98.9 F 88-98 18-20 129-138/73-81 97-97 PHYSICAL EXAM GENERAL: The patient is awake, alert, and fully oriented, in no acute distress. HEAD: Normal with no signs of trauma. EYES: PERRL, extraocular movements intact, sclera anicteric, conjunctiva clear. ENT: Ears normal, nares patent, oropharynx clear without exudates, moist mucous membranes. NECK: Trachea midline, full range of motion, supple. LUNGS: Breath sounds equal, clear to auscultation bilaterally, no wheezes, no crackles, no accessory muscle use. HEART: Regular rate and rhythm, S1, S2 without murmur, rub or gallop. ABDOMEN: Soft, nontender, nondistended, normoactive bowel sounds, no guarding, no rebound, no hepatosplenomegaly, no masses. EXTREMITIES: 2+ pulses, warm, well-perfused, no edema. NEUROLOGICAL: Cranial nerves II through XII grossly intact. Normal speech, gait not observed. PSYCH: Normal mood, normal affect. SKIN: Warm, dry, normal turgor, no rashes or lesions noted. LABS Laboratory Results - last 24 hr 09/27/17 17:15 Hep C Ab Diagnostic <0.1 HOSPITAL COURSE: Date of Admission:09/26/17 Date of Discharge: 10/02/17 Pre hospital course 66 year-old male with no reported significant PMH other than daily alcohol use. Patient presented to the ED with a complaint of difficulty urinating x 2 days. Patient drank heavily three days ago at a constitution party. Since then he has had urgency, hematuria, and decreased urine output. He reports subjective fever and chills. He denies history of enlarged prostate or prostatitis. He reports one previous UTI when living in [place], date uncertain. ER course was notable for: (1) T102.6, p 138, BP 120/65 (2) UA 365 WBCs, 20 RBCs (3) US bladder: marked prostatic enlargement (4) Lactic acid 2.3-->1.1 Assessment & Plan 66 year-old male with no reported significant PMH other than daily alcohol use. Admitted for severe sepsis secondary to E.coli UTI, E.coli bacteremia, and BPH with urinary obstruction. Severe sepsis secondary to E. coli UTI E.coli bacteremia --T102.6, p 138, pyuria, lactic acid 2.3 on admission --treated with Vanc x 1; Zosyn (09/27-->09/30), Ceftriaxone (09/30-->10/02) --discharged on cefuroxime to complete another 3 days of treatment Marked prostatic enlargement --80g --started flomax and proscar --needs outpatient followup with Dr. Ash --elevated PSA, needs repeat in 6 weeks after acute episode Elevated bilirubin Transaminitis --MRI shows right hepatic lobe lesion, early HCC v. atypical hemangioma --seen and evaluated by GI, biopsy v. repeat imaging 2-3 months --f/u as outpatient with Dr. Andersen ETOH abuse --no signs of withdrawal Minutes to complete discharge: 35 Discharge Summary Reason For Visit: SEPSIS Current Active Problems Abnormal findings on diagnostic imaging of liver (Acute) Acute prostatitis (Acute) Alcoholism (Acute) Benign localized hyperplasia of prostate with urinary obstruction (Acute) Elevated prostate specific antigen greater than or equal to 20 ng/ml (Acute) Sepsis (Acute) Transaminitis (Acute) Condition: Improved - Instructions Diet, Activity, Other Instructions: A prescription has been sent to your pharmacy for Rochephin which is an antibiotic. Take this medication as directed and be sure to finish all the medication. It is very important you follow up with Dr. Ash, the urologist, within one week of your discharge. His contact information is enclosed. You have a very large prostate and you have to be followed closely. You have to have your PSA level rechecked in six weeks. Return to the emergency department for any new or worsening symptoms. Referrals: Shawn Ash MD [Staff Physician] - 1 Week Disposition: HOME - Home Medications Comprehensive Discharge Medication List: Ambulatory Orders Finasteride 5 mg PO DAILY #30 tablet 10/02/17 Tamsulosin HCl 0.4 mg PO HS #30 cap.er.24h 10/02/17 This patient is new to me today: No Emergency Visit: Yes ED Registration Date: 09/26/17 Care time: The patient presented to the Emergency Department on the above date and was hospitalized for further evaluation of their emergent condition. Critical Care patient: No - Discharge Referral Referred to [facility] No
== END 2017-10-02 16:55 | disposition home or self-care (01) | DRG 720 ==
LOC: JER 12:57 → JERBED 15:43 → J4W 18:30
PROVIDERS: ADMIT Internal Medicine; ATTEND Nurse Practitioner Acute Care
DX: A41.51 Sepsis due to Escherichia coli [E. coli] (principal); R65.20 Severe sepsis without septic shock; F10.10 Alcohol abuse, uncomplicated; E87.1 Hypo-osmolality and hyponatremia; E87.6 Hypokalemia; R74.0 Nonspecific elevation of levels of transaminase and lactic acid dehydrogenase [LDH]; E83.51 Hypocalcemia; E83.39 Other disorders of phosphorus metabolism; N40.1 Benign prostatic hyperplasia with lower urinary tract symptoms; R33.8 Other retention of urine; K76.89 Other specified diseases of liver; R93.2 Abnormal findings on diagnostic imaging of liver and biliary tract; N39.0 Urinary tract infection, site not specified; D18.09 Hemangioma of other sites; R97.20 Elevated prostate specific antigen [PSA]; R31.9 Hematuria, unspecified; K76.9 Liver disease, unspecified; N13.8 Other obstructive and reflux uropathy
CPT/HCPCS: 36415; 71045-TC-FY; 74176-TC; 74183-TC; 76705-TC; 76775-TC; 76856-TC; 80048; 80053; 80074; 80076; 81003; 81015; 82105; 82607; 82746; 82803; 83605; 83735; 84100; 84153; 84443; 84484; 85025; 85610; 85730; 86140; 86593; 86705; 86850; 86900; 86901; 87040; 87086; 87186; 87389; 93005; 93010; 99285-25; J0131; J1644; J7030

== ENCOUNTER 2022-04-18 20:55 | Inpatient (IN) | payer OTHER ==
[2022-04-18 21:09] VITALS: BMI 20.9
[2022-04-18] MEDS ORDERED: ONDANSETRON 4 MG/2 ML VIAL IVPUSH ONE (23:29)
[2022-04-18] MEDS ORDERED: SODIUM CHLORIDE 0.9% 500 ML INFUS.BAG IV ONE (23:29)
[2022-04-18] MEDS ORDERED: ACETAMINOPHEN 1000 MG/100 ML BAG IVPB ONE (23:35)
[2022-04-18] MEDS ORDERED: ACETAMINOPHEN INJECTION 100 ML IVPB ONE (23:44)
[2022-04-18] MEDS ORDERED: ONDANSETRON 4 MG/2 ML VIAL ONE (23:44)
[2022-04-19 00:09] LABS: BASO % 0.3 % (0-2.0); HEMATOCRIT 38.3 % (35.4-49); HEMOGLOBIN 12.9 GM/dL (11.7-16.9); LYMPH % 6.6 % (8-40); MCH 32.1 pg (25.7-33.7); MCHC 33.7 g/dl (32.0-35.9); MEAN CELL VOLUME 95.2 fl (80-96); MEAN PLT VOLUME 8.5 fl (7.5-11.1); MONO % 4.5 % (3.8-10.2); NEUT % 88.6 % (42.8-82.8); PLATELET COUNT 279 10^3/uL (134-434); RBC 4.03 M/mm3 (4.00-5.60); RDW 13.1 % (11.9-15.9); WHITE BLOOD COUNT 13.5 K/mm3 (4.0-10.0)
[2022-04-19 00:29] LABS: EPI CELLS >36 /uL (0-25.1); HYALINE CASTS 3 /uL (0-3.1); URINE APPEARANCE CLOUDY; URINE BACTERIA 53 /uL (0-1359); URINE BILIRUBIN NEGATIVE (NEGATIVE); URINE COLOR RED; URINE GLUCOSE (UA) 3+ (NEGATIVE); URINE KETONE 4+ (NEGATIVE); URINE LEUK ESTERASE NEGATIVE (NEGATIVE); URINE NITRITE NEGATIVE (NEGATIVE); URINE PROTEIN 3+ (NEGATIVE); URINE RBC 9701 /uL (0-23.9); URINE UROBILINOGEN 0.2 mg/dL (0.2-1.0)
[2022-04-19 00:39] LABS: ALBUMIN 3.8 g/dl (3.4-5.0); BLOOD UREA NITROGEN 14.5 mg/dL (7-18); CALCIUM 7.9 mg/dL (8.5-10.1)
[2022-04-19 00:42] LABS: CREATININE 0.8 mg/dL (0.55-1.3)
[2022-04-19 00:44] LABS: BILIRUBIN,TOTAL 1.4 mg/dL (0.2-1)
[2022-04-19] MEDS ORDERED: LORazepam 2 MG TABLET PO PRN (06:59)
[2022-04-19] MEDS ORDERED: INSULIN SLIDING SCALE (NOVOLOG) 1 VIAL SQ SCH (07:00)
[2022-04-19] MEDS ORDERED: SODIUM CHLORIDE 1,000 ML IV SCH ×2 (07:02→07:15)
[2022-04-19] MEDS ORDERED: LORazepam 1 MG TABLET PO PRN (07:07)
[2022-04-19] MEDS ORDERED: FOLIC ACID 5 MG/1 ML SQ ONE (08:04)
[2022-04-19] MEDS ORDERED: TAMSULOSIN HCL 0.4 MG CAP ONE (08:20)
[2022-04-19] MEDS ORDERED: THIAMINE HCL 200 MG/2 ML VIAL ONE (08:20)
[2022-04-19] MEDS ORDERED: CEFTRIAXONE 1 GM/50 ML BAG ONE (08:58)
[2022-04-19] MEDS: CEFTRIAXONE 1 GM in DEXTROSE 5%-WATER - 50 ML IVPB SCH (09:04)
[2022-04-19] MEDS: THIAMINE HCL 200 MG/2 ML VIAL IVPB SCH (09:04)
[2022-04-19] MEDS: TAMSULOSIN HCL 0.4 MG CAP PO SCH (09:04)
[2022-04-19 09:09] LABS: ALLENS TEST POSITIVE; ARTERIAL BLD GAS O2 SATURATION 96.6 % (95-98); ARTERIAL BLOOD GAS BASE EXCESS -5.9 mmol/L (-2-2); ARTERIAL BLOOD GAS PO2 87.1 mmHg (80-100); ARTERIAL BLOOD GAS pH 7.385 (7.350-7.450)
[2022-04-19] MEDS: FOLIC ACID 5 MG/1 ML SQ SCH ×2 (09:49→10:30)
[2022-04-19 13:23] LABS: BASO % 0.2 % (0-2.0); EOS % 0.1 % (0-4.5); HEMATOCRIT 39.9 % (35.4-49); HEMOGLOBIN 13.7 GM/dL (11.7-16.9); LYMPH % 16.2 % (8-40); MCHC 34.4 g/dl (32.0-35.9); MEAN CELL VOLUME 95.9 fl (80-96); MEAN PLT VOLUME 9.2 fl (7.5-11.1); MONO % 10.3 % (3.8-10.2); NEUT % 73.2 % (42.8-82.8); PLATELET COUNT 262 10^3/uL (134-434); RBC 4.16 M/mm3 (4.00-5.60); RDW 12.9 % (11.9-15.9)
[2022-04-19 13:48] LABS: ALBUMIN 3.3 g/dl (3.4-5.0); BLOOD UREA NITROGEN 9.7 mg/dL (7-18); MAGNESIUM 2.3 mg/dL (1.8-2.4)
[2022-04-19 13:49] LABS: PHOSPHOROUS 1.5 mg/dL (2.5-4.9)
[2022-04-19 13:50] LABS: CREATININE 0.7 mg/dL (0.55-1.3); TOT PROT 6.2 g/dl (6.4-8.2)
[2022-04-19] MEDS ORDERED: DEXTROSE 5%-WATER - 1,000 ML IV SCH (15:00)
[2022-04-19] MEDS: NAPH,MB-DB/K PH,MBDB POWDER PACKET PO SCH ×2 (16:12→22:40)
[2022-04-19 19:14] LABS: ALBUMIN 3.2 g/dl (3.4-5.0); BLOOD UREA NITROGEN 9.4 mg/dL (7-18)
[2022-04-19 19:17] LABS: CREATININE 0.8 mg/dL (0.55-1.3)
[2022-04-19 19:18] LABS: TOT PROT 5.8 g/dl (6.4-8.2)
[2022-04-19 19:19] LABS: BILIRUBIN,TOTAL 0.9 mg/dL (0.2-1)
[2022-04-19] MEDS: HEPARIN NA (PORCINE) 5,000 UNITS/ML 1ML VIAL SQ SCH (22:39)
[2022-04-19] MEDS: INSULIN SLIDING SCALE (NOVOLOG) 1 VIAL SQ SCH (22:39)
[2022-04-20] MEDS: INSULIN SLIDING SCALE (NOVOLOG) 1 VIAL SQ SCH ×4 (06:03→22:36)
[2022-04-20] MEDS: HEPARIN NA (PORCINE) 5,000 UNITS/ML 1ML VIAL SQ SCH ×3 (06:03→22:34)
[2022-04-20] MEDS: CEFTRIAXONE 1 GM in DEXTROSE 5%-WATER - 50 ML IVPB SCH (09:32)
[2022-04-20] MEDS: MULTIVITAMINS (DAILY MVI) TABLET (FP) PO SCH (09:33)
[2022-04-20] MEDS: THIAMINE HCL 200 MG/2 ML VIAL IVPB SCH (09:33)
[2022-04-20] MEDS: NAPH,MB-DB/K PH,MBDB POWDER PACKET PO SCH ×3 (09:33→22:46)
[2022-04-20] MEDS: TAMSULOSIN HCL 0.4 MG CAP PO SCH (09:34)
[2022-04-20] MEDS: INSULIN (LEVEMIR) 100 UNITS/ML UNITS SQ SCH ×2 (09:41→22:35)
[2022-04-20] MEDS: FOLIC ACID 5 MG/1 ML SQ SCH (10:00)
[2022-04-20 10:06] LABS: BASO % 0.9 % (0-2.0); EOS % 0.9 % (0-4.5); HEMATOCRIT 40.2 % (35.4-49); HEMOGLOBIN 13.6 GM/dL (11.7-16.9); LYMPH % 37.1 % (8-40); MCHC 33.8 g/dl (32.0-35.9); MEAN CELL VOLUME 94.6 fl (80-96); MEAN PLT VOLUME 8.7 fl (7.5-11.1); NEUT % 51.1 % (42.8-82.8); PLATELET COUNT 288 10^3/uL (134-434); RBC 4.25 M/mm3 (4.00-5.60); RDW 13.2 % (11.9-15.9); WHITE BLOOD COUNT 7.8 K/mm3 (4.0-10.0)
[2022-04-20 10:37] LABS: ALBUMIN 3.4 g/dl (3.4-5.0); BLOOD UREA NITROGEN 6.5 mg/dL (7-18); CALCIUM 8.4 mg/dL (8.5-10.1); MAGNESIUM 2.1 mg/dL (1.8-2.4)
[2022-04-20 10:40] LABS: CREATININE 0.7 mg/dL (0.55-1.3); PHOSPHOROUS 1.9 mg/dL (2.5-4.9)
[2022-04-20 10:42] LABS: BILIRUBIN,TOTAL 1.2 mg/dL (0.2-1); TOT PROT 6.2 g/dl (6.4-8.2)
[2022-04-20] MEDS ORDERED: PROPOFOL 20 ML ONE ×4 (13:30→15:13)
[2022-04-20] MEDS ORDERED: ONDANSETRON 4 MG/2 ML VIAL IVPUSH PRN (14:26)
[2022-04-20] MEDS ORDERED: MIDAZOLAM HCL 2 MG/2 ML SINGLE DOSE VIAL ONE (14:28)
[2022-04-20] MEDS ORDERED: ceFAZolin SODIUM 1 GM VIAL IVPB ONE (14:30)
[2022-04-20] MEDS: LACTATED RINGERS SOLUTION 1,000 ML IV SCH (17:45)
[2022-04-20] MEDS: FOLIC ACID 1 MG TABLET (FP) PO SCH (17:50)
[2022-04-20] MEDS: oxyCODONE HCL 5 MG TABLET PO PRN (19:04)
[2022-04-21] MEDS: oxyCODONE HCL 5 MG TABLET PO PRN (05:30)
[2022-04-21] MEDS: HEPARIN NA (PORCINE) 5,000 UNITS/ML 1ML VIAL SQ SCH ×2 (05:46→15:12)
[2022-04-21] MEDS: INSULIN (LEVEMIR) 100 UNITS/ML UNITS SQ SCH (07:05)
[2022-04-21] MEDS: INSULIN SLIDING SCALE (NOVOLOG) 1 VIAL SQ SCH ×3 (07:06→17:12)
[2022-04-21] MEDS: NAPH,MB-DB/K PH,MBDB POWDER PACKET PO SCH (09:34)
[2022-04-21] MEDS: TAMSULOSIN HCL 0.4 MG CAP PO SCH (09:34)
[2022-04-21] MEDS: MULTIVITAMINS (DAILY MVI) TABLET (FP) PO SCH (09:34)
[2022-04-21] MEDS: FOLIC ACID 1 MG TABLET (FP) PO SCH (09:34)
[2022-04-21] MEDS: THIAMINE HCL 200 MG/2 ML VIAL IVPB SCH (09:35)
[2022-04-21] MEDS ORDERED: INSULIN (NOVOLOG) ASPART 100 UNITS/ML 10ML VIAL ONE (11:39)
[2022-04-21] MEDS: CEFTRIAXONE 1 GM in DEXTROSE 5%-WATER - 50 ML IVPB SCH ×2 (11:53→12:02)
[2022-04-21 13:11] LABS: BASO % 0.8 % (0-2.0); EOS % 0.9 % (0-4.5); HEMATOCRIT 37.6 % (35.4-49); LYMPH % 18.6 % (8-40); MCHC 34.7 g/dl (32.0-35.9); MEAN PLT VOLUME 9.8 fl (7.5-11.1); MONO % 8.1 % (3.8-10.2); NEUT % 71.6 % (42.8-82.8); PLATELET COUNT 243 10^3/uL (134-434); RBC 3.95 M/mm3 (4.00-5.60); RDW 13.3 % (11.9-15.9)
[2022-04-21 13:46] LABS: ALBUMIN 2.9 g/dl (3.4-5.0); BLOOD UREA NITROGEN 5.2 mg/dL (7-18); CALCIUM 7.9 mg/dL (8.5-10.1); MAGNESIUM 1.9 mg/dL (1.8-2.4)
[2022-04-21 13:48] LABS: CREATININE 0.6 mg/dL (0.55-1.3); TOT PROT 5.6 g/dl (6.4-8.2)
[2022-04-21 14:00] LABS: EPI CELLS 3 /uL (0-25.1); HYALINE CASTS 0 /uL (0-3.1); URINE APPEARANCE CLOUDY; URINE BACTERIA 2 /uL (0-1359); URINE BILIRUBIN NEGATIVE (NEGATIVE); URINE COLOR RED; URINE GLUCOSE (UA) 3+ (NEGATIVE); URINE KETONE 2+ (NEGATIVE); URINE LEUK ESTERASE 1+ (NEGATIVE); URINE NITRITE NEGATIVE (NEGATIVE); URINE PROTEIN 2+ (NEGATIVE); URINE RBC 15654 /uL (0-23.9); URINE UROBILINOGEN 0.2 mg/dL (0.2-1.0); URINE WBC 19 /uL (0-25.8)
[2022-04-21] MEDS ORDERED: POTASSIUM CHLORIDE TABS 20 MEQ TABLET.ER (FP) PO ONE (15:08)
[2022-04-21] MEDS: LACTATED RINGERS SOLUTION 1,000 ML IV SCH (17:13)
[2022-04-21 19:10] VITALS: BP 151/78; PULSE 99; RESP 20; TEMP 98.3
== END 2022-04-21 18:58 | disposition home health service (06) | DRG 694 ==
LOC: JER 20:55 → JERBED 04-19 05:36 → J8W 04-19 15:24
PROVIDERS: ADMIT Family Medicine; ATTEND Internal Medicine
PROC: 0TCB8ZZ Extirpation of Matter from Bladder, Via Natural or Artificial Opening Endoscopic (ICD-10-PCS; principal; 2022-04-20 14:00)
DX: N21.0 Calculus in bladder (principal); E87.20 Acidosis, unspecified; E87.1 Hypo-osmolality and hyponatremia; N39.0 Urinary tract infection, site not specified; I10 Essential (primary) hypertension; E11.9 Type 2 diabetes mellitus without complications; R31.9 Hematuria, unspecified; F10.90 Alcohol use, unspecified, uncomplicated; E83.39 Other disorders of phosphorus metabolism; Z91.14 Patient's other noncompliance with medication regimen; N40.0 Benign prostatic hyperplasia without lower urinary tract symptoms
CPT/HCPCS: 36415; 36600; 74177-TC; 80053; 81003; 82010; 82360; 82803; 82962; 83036; 83605; 83735; 83930; 83935; 84100; 84300; 84443; 85025; 87040; 87086; 88300-TC; 93005; 93010; 94760; 99285-25; C1758; C9803-CS; J1644; Q9967; U0003; U0005

== ENCOUNTER 2023-12-06 19:01 | Emergency (ER) | payer OTHER ==
[2023-12-06 19:12] VITALS: BP 136/63; PULSE 79; RESP 18; TEMP 98; BMI 27.2
[2023-12-06 20:25] LABS: BASO % 0.6 % (0-2.0); EOS % 0.2 % (0-4.5); HEMATOCRIT 34.4 % (35.4-49); LYMPH % 18.6 % (8-40); MCH 32.7 pg (25.7-33.7); MCHC 34.8 g/dl (32.0-35.9); MEAN CELL VOLUME 94.2 fl (80-96); MEAN PLT VOLUME 8.1 fl (7.5-11.1); NEUT % 71.6 % (42.8-82.8); PLATELET COUNT 248 10^3/uL (134-434); RBC 3.65 M/mm3 (4.00-5.60); WHITE BLOOD COUNT 9.6 K/mm3 (4.0-10.0)
[2023-12-06 20:28] LABS: EPI CELLS 14 /uL (0-25.1); HYALINE CASTS 0 /uL (0-3.1); PH,URINE 5.5 (5.0-8.0); URINE APPEARANCE CLOUDY; URINE BACTERIA 5 /uL (0-1359); URINE BILIRUBIN NEGATIVE (NEGATIVE); URINE COLOR YELLOW; URINE GLUCOSE (UA) 1+ (NEGATIVE); URINE KETONE 2+ (NEGATIVE); URINE LEUK ESTERASE NEGATIVE (NEGATIVE); URINE NITRITE NEGATIVE (NEGATIVE); URINE PROTEIN 1+ (NEGATIVE); URINE RBC 143 /uL (0-23.9); URINE UROBILINOGEN 0.2 mg/dL (0.2-1.0); URINE WBC 14 /uL (0-25.8)
[2023-12-06 20:32] LABS: INR 0.95 (0.83-1.09); PROTHROMBIN TIME (PATIENT) 10.7 SEC (9.7-13.0)
[2023-12-06] MEDS ORDERED: LIDOCAINE HCL 2% JELLY 11 ML TP ONE (20:33)
[2023-12-06 20:34] LABS: ACTIVATED PTT 29.2 SECONDS (25.2-36.5)
[2023-12-06 20:46] LABS: ALBUMIN 3.4 g/dl (3.4-5.0)
[2023-12-06 20:50] LABS: CREATININE 0.6 mg/dL (0.55-1.3)
[2023-12-06 20:51] LABS: BILIRUBIN,TOTAL 1.3 mg/dL (0.2-1); TOT PROT 6.4 g/dl (6.4-8.2)
[2023-12-06] MEDS: LIDOCAINE HCL 2% JELLY 10 ML CARTRIDGE UR ONE (20:51)
[2023-12-06 21:17] LABS: BLOOD UREA NITROGEN 9.9 mg/dL (7-18)
== END 2023-12-06 21:32 | disposition home or self-care (01) ==
LOC: JER 19:01
DX: R33.9 Retention of urine, unspecified (principal); N21.0 Calculus in bladder; R11.2 Nausea with vomiting, unspecified; R19.7 Diarrhea, unspecified; R35.0 Frequency of micturition; R10.30 Lower abdominal pain, unspecified; R30.0 Dysuria; R68.83 Chills (without fever)
CPT/HCPCS: 36415; 76775-TC; 80053; 81003; 85025; 85610; 85730; 86850; 86900; 86901; 87077; 87086; 99283-25

== ENCOUNTER 2023-12-16 23:08 | Inpatient (IN) | payer OTHER ==
[2023-12-16 23:15] VITALS: BMI 26.2
[2023-12-16] MEDS ORDERED: ACETAMINOPHEN INJECTION 100 ML IVPB ONE (23:55)
[2023-12-17] MEDS: SODIUM CHLORIDE 0.9% 500 ML INFUS.BAG IV ONE
[2023-12-17] MEDS: ACETAMINOPHEN 1000 MG/100 ML BAG IVPB ONE (00:25)
[2023-12-17 00:28] LABS: VENOUS BASE EXCESS 1.4 mmol/L (-2-2); VENOUS O2 SATURATION 91.6 % (70-80); VENOUS PCO2 35.6 mmHg (38-52); VENOUS PH 7.46 (7.310-7.410)
[2023-12-17 00:29] LABS: BASO % 0.5 % (0-2.0); EOS % 0.1 % (0-4.5); HEMATOCRIT 37.5 % (35.4-49); HEMOGLOBIN 12.7 GM/dL (11.7-16.9); LYMPH % 5.6 % (8-40); MCHC 33.8 g/dl (32.0-35.9); MEAN CELL VOLUME 94.6 fl (80-96); MEAN PLT VOLUME 8.1 fl (7.5-11.1); MONO % 11.6 % (3.8-10.2); NEUT % 82.2 % (42.8-82.8); PLATELET COUNT 240 10^3/uL (134-434); RBC 3.96 M/mm3 (4.00-5.60); RDW 13.3 % (11.9-15.9); WHITE BLOOD COUNT 16.9 K/mm3 (4.0-10.0)
[2023-12-17 00:32] LABS: EPI CELLS 4 /uL (0-25.1); HYALINE CASTS 1 /uL (0-3.1); URINE APPEARANCE CLOUDY; URINE BACTERIA >9,000 /uL (0-1359); URINE BILIRUBIN NEGATIVE (NEGATIVE); URINE COLOR YELLOW; URINE GLUCOSE (UA) NEGATIVE (NEGATIVE); URINE KETONE 1+ (NEGATIVE); URINE LEUK ESTERASE 3+ (NEGATIVE); URINE NITRITE POSITIVE (NEGATIVE); URINE PROTEIN 2+ (NEGATIVE); URINE RBC 477 /uL (0-23.9); URINE WBC 2434 /uL (0-25.8)
[2023-12-17 00:38] LABS: INR 1.02 (0.83-1.09); PROTHROMBIN TIME (PATIENT) 11.5 SEC (9.7-13.0)
[2023-12-17 00:41] LABS: ACTIVATED PTT 31.6 SECONDS (25.2-36.5)
[2023-12-17 00:49] LABS: POTASSIUM 3.7 mmol/L (3.5-5.1)
[2023-12-17] MEDS: MEROPENEM 1 GM in DEXTROSE 5%-WATER 100 ML IVPB ONE (00:50)
[2023-12-17 00:51] LABS: ALBUMIN 3.6 g/dl (3.4-5.0); BLOOD UREA NITROGEN 13.1 mg/dL (7-18); CALCIUM 8.5 mg/dL (8.5-10.1)
[2023-12-17 00:53] LABS: CREATININE 0.9 mg/dL (0.55-1.3)
[2023-12-17] MEDS ORDERED: MEROPENEM 1 GM VIAL (RESTRICTED TO ID) IVPB ONE (00:54)
[2023-12-17 00:56] LABS: BILIRUBIN,TOTAL 0.8 mg/dL (0.2-1); TOT PROT 6.9 g/dl (6.4-8.2)
[2023-12-17] MEDS: SODIUM CHLORIDE 1,000 ML IV STA (02:04)
[2023-12-17] MEDS: SODIUM CHLORIDE 1,000 ML IV SCH ×2 (03:13→09:46)
[2023-12-17 03:40] LABS: URINE APPEARANCE CLOUDY; URINE BILIRUBIN NEGATIVE (NEGATIVE); URINE COLOR YELLOW; URINE GLUCOSE (UA) NEGATIVE (NEGATIVE); URINE KETONE NEGATIVE (NEGATIVE); URINE LEUK ESTERASE 3+ (NEGATIVE); URINE NITRITE NEGATIVE (NEGATIVE); URINE PROTEIN TRACE (NEGATIVE); URINE UROBILINOGEN 0.2 mg/dL (0.2-1.0)
[2023-12-17 07:10] LABS: EPI CELLS 1 /uL (0-25.1); HYALINE CASTS 0 /uL (0-3.1); URINE BACTERIA 125 /uL (0-1359); URINE RBC 14 /uL (0-23.9); URINE WBC 1072 /uL (0-25.8)
[2023-12-17] MEDS: INSULIN ASPART SLIDING SCALE (NOVOLOG) 1 VIAL SQ SCH (07:33)
[2023-12-17 08:35] LABS: HEMATOCRIT 35.4 % (35.4-49); HEMOGLOBIN 11.9 GM/dL (11.7-16.9); MCH 32.4 pg (25.7-33.7); MCHC 33.7 g/dl (32.0-35.9); MEAN CELL VOLUME 96.3 fl (80-96); MEAN PLT VOLUME 8.5 fl (7.5-11.1); PLATELET COUNT 226 10^3/uL (134-434); RBC 3.68 M/mm3 (4.00-5.60); RDW 13.2 % (11.9-15.9); WHITE BLOOD COUNT 16.3 K/mm3 (4.0-10.0)
[2023-12-17 08:51] LABS: POTASSIUM 3.6 mmol/L (3.5-5.1)
[2023-12-17 08:56] LABS: BLOOD UREA NITROGEN 10.5 mg/dL (7-18)
[2023-12-17 08:57] LABS: CALCIUM 7.8 mg/dL (8.5-10.1); MAGNESIUM 2.1 mg/dL (1.8-2.4)
[2023-12-17 08:59] LABS: CREATININE 0.9 mg/dL (0.55-1.3); PHOSPHOROUS 3.1 mg/dL (2.5-4.9)
[2023-12-17] MEDS: CEFTRIAXONE 1 GM in DEXTROSE 5%-WATER - 50 ML IVPB SCH (09:45)
[2023-12-17] MEDS: INSULIN (LEVEMIR) 100 UNITS/ML UNITS SQ SCH (09:46)
[2023-12-17] MEDS: ACETAMINOPHEN 1000 MG/100 ML BAG IVPB PRN (17:20)
[2023-12-17] MEDS: HEPARIN NA (PORCINE) 5,000 UNITS/ML 1ML VIAL SQ SCH (21:10)
[2023-12-18] MEDS: metFORMIN HCL 500 MG TABLET (FP) PO SCH (06:07)
[2023-12-18 09:50] LABS: BASO % 0.7 % (0-2.0); EOS % 0.2 % (0-4.5); HEMATOCRIT 34.5 % (35.4-49); HEMOGLOBIN 11.6 GM/dL (11.7-16.9); LYMPH % 13.4 % (8-40); MCH 32.6 pg (25.7-33.7); MCHC 33.7 g/dl (32.0-35.9); MEAN CELL VOLUME 96.9 fl (80-96); MEAN PLT VOLUME 8.7 fl (7.5-11.1); NEUT % 78.7 % (42.8-82.8); PLATELET COUNT 208 10^3/uL (134-434); RBC 3.57 M/mm3 (4.00-5.60); RDW 13.1 % (11.9-15.9); WHITE BLOOD COUNT 15.5 K/mm3 (4.0-10.0)
[2023-12-18 10:33] LABS: POTASSIUM 3.6 mmol/L (3.5-5.1)
[2023-12-18 10:35] LABS: ALBUMIN 2.9 g/dl (3.4-5.0)
[2023-12-18 10:37] LABS: CALCIUM 8.1 mg/dL (8.5-10.1)
[2023-12-18 10:38] LABS: BLOOD UREA NITROGEN 9.9 mg/dL (7-18); MAGNESIUM 2.1 mg/dL (1.8-2.4)
[2023-12-18 10:40] LABS: CREATININE 0.8 mg/dL (0.55-1.3)
[2023-12-18 10:42] LABS: BILIRUBIN,TOTAL 0.6 mg/dL (0.2-1); TOT PROT 5.7 g/dl (6.4-8.2)
[2023-12-18] MEDS: PIPERACILLIN/TAZOB 3.375 GM 3.375 GM in DEXTROSE 5%-WATER - 50 ML IVPB SCH (17:11)
[2023-12-19 06:35] VITALS: TEMP 97.8
[2023-12-19 09:54] LABS: EOS % 0.9 % (0-4.5); HEMATOCRIT 37.4 % (35.4-49); HEMOGLOBIN 12.7 GM/dL (11.7-16.9); LYMPH % 23.3 % (8-40); MCH 32.7 pg (25.7-33.7); MCHC 33.9 g/dl (32.0-35.9); MEAN CELL VOLUME 96.4 fl (80-96); MEAN PLT VOLUME 8.9 fl (7.5-11.1); MONO % 8.4 % (3.8-10.2); NEUT % 66.4 % (42.8-82.8); PLATELET COUNT 250 10^3/uL (134-434); RBC 3.88 M/mm3 (4.00-5.60); WHITE BLOOD COUNT 8.7 K/mm3 (4.0-10.0)
[2023-12-19 10:02] LABS: POTASSIUM 3.9 mmol/L (3.5-5.1)
[2023-12-19 10:14] LABS: CALCIUM 8.7 mg/dL (8.5-10.1)
[2023-12-19 10:15] LABS: ALBUMIN 3.2 g/dl (3.4-5.0); MAGNESIUM 2.4 mg/dL (1.8-2.4)
[2023-12-19 10:18] LABS: CREATININE 0.8 mg/dL (0.55-1.3)
[2023-12-19 10:20] LABS: BILIRUBIN,TOTAL 0.5 mg/dL (0.2-1); TOT PROT 6.6 g/dl (6.4-8.2)
[2023-12-19 10:33] VITALS: RESP 16
[2023-12-19 15:20] VITALS: BP 123/64; PULSE 81
== END 2023-12-19 18:18 | disposition home or self-care (01) | DRG 698 ==
LOC: JER 23:08 → JERBED 12-17 01:04 → J5S 12-17 06:37
PROVIDERS: ADMIT Internal Medicine; ATTEND Internal Medicine
DX: T83.511A Infection and inflammatory reaction due to indwelling urethral catheter, initial encounter (principal); A41.9 Sepsis, unspecified organism; N39.0 Urinary tract infection, site not specified; E11.9 Type 2 diabetes mellitus without complications; N40.0 Benign prostatic hyperplasia without lower urinary tract symptoms; N21.0 Calculus in bladder; R33.9 Retention of urine, unspecified; B96.1 Klebsiella pneumoniae [K. pneumoniae] as the cause of diseases classified elsewhere; Y84.6 Urinary catheterization as the cause of abnormal reaction of the patient, or of later complication, without mention of misadventure at the time of the procedure; I10 Essential (primary) hypertension
CPT/HCPCS: 0241U-QW; 36415; 71045-TC-FY; 74183-TC; 76705-TC; 76856-TC; 80048; 80053; 81003; 82105; 82803; 82962; 83036; 83605; 83735; 84100; 84484; 85025; 85027; 85610; 85730; 86850; 86900; 86901; 87040; 87086; 87186; 93005; 93010; 99285-25; J0131; J1644